=== PATIENT | female | born 1935 | race Caucasian/White ===

== ENCOUNTER 2019-06-20 11:36 | Inpatient (IN) | payer MEDICARE ==
--- NOTE | 2019-06-20 12:48 | CT ---
EXAM: CT brain without contrast HISTORY: Syncope on blood thinners COMPARISON: None TECHNIQUE: Multiple contiguous axial images were obtained and a CT of the brain without contrast. FINDINGS: There are scattered hypodensities in the subcortical and periventricular white matter consi stent with small vessel ischemic disease. There is no evidence of hydrocephalus, intracranial hemorrhage, or extra-axial fluid collection. The calvarium and overlying soft tissues are unremarkable. The visualized paranasal sinuses and masto id air cells are well aerated. IMPRESSION: No evidence of acute intracranial abnormality
[2019-06-20 12:53] LABS: #Eosinphils 0.9 thou/uL (0.0-0.7); #Lymphocytes 2.1 thou/uL (1.20-3.40); #Monocytes 0.9 thou/uL (0.11-0.59); #Neutrophils 6.1 thou/uL (1.40-6.50); %Basophils 0.5 % (0.0-1.0); %Eosinophils 8.9 % (0.0-10.0); %Lymphocytes 20.8 % (21.0-51.0); %Monocytes 9.1 % (0.0-10.0); %Neutrophils 60.8 % (42.0-75.0); Hemoglobin 12.4 g/dL (12.0-16.0); Mean Corpuscular HGB CONC 33.4 g/dL (32.0-36.0); Mean Corpuscular Hemoglobin 32.4 pg (27.0-31.0); Mean Platelet Volume 8.3 fL (7.4-10.4); Platelet Count 223 thou/uL (130-400); RBC Distribution Width 13.3 % (11.5-14.5); Red Blood Cell (RBC) Count 3.83 mill/uL (4.20-5.40); White Blood Cell (WBC) Count 10.1 thou/uL (4.8-10.8)
[2019-06-20 13:02] LABS: INR-International Normal Ratio 1.1; PTT 30.1 SEC (22.9-36.1); Prothrombin Time 14.2 SEC (12.0-14.7)
--- NOTE | 2019-06-20 13:04 | RAD ---
CHEST 1 VIEW: HISTORY: Syncope. COMPARISON: None. FINDINGS: There is a 5 mm nodule projecting over the left lung base. Heart size is mildly enlarged. Subtle right infrahilar airspace opacity. No acute osseous abnormality. There is subacromial narrowing bilaterally without normal articulation of the humeral heads with the acromion suggesting rotator cuff arthropathy. IMPRESSION: 1. Subtle right infrahilar airspace opacity may reflect infection. 2. A 5 mm nodule projecting over the left lung base, likely granuloma. Attention on posttreatment r adiographs recommended. POS: HOME
[2019-06-20 13:16] LABS: ALT (SGPT) 12 U/L (8-55); AST (SGOT) 23 U/L (5-34); Albumin 3.8 g/dL (3.4-4.8); Alkaline Phosphatase 77 U/L (40-110); Anion Gap 14 mmol/L (10-20); BUN (Urea Nitrogen) 49 mg/dL (9.8-20.1); Bilirubin, Total 0.4 mg/dL (0.2-1.2); CK (CPK) 45 U/L (29-168); Calc. Creatinine Clearance 0 mL/min (70-130); Calcium 8.4 mg/dL (7.8-10.44); Carbon Dioxide 23 mmol/L (23-31); Chloride 107 mmol/L (98-107); Estimated GFR-MDRD 28; Globulin 2.4 g/dL (2.4-3.5); Glucose 97 mg/dL (83-110); Magnesium 2.4 mg/dL (1.6-2.6); Potassium 4.5 mmol/L (3.5-5.1); Protein, Total 6.2 g/dL (6.0-8.3); Sodium 139 mmol/L (136-145)
[2019-06-20 13:31] LABS: Bilirubin Negative (Negative); Blood, Urine Negative (Negative); Clarity Clear (Clear); Glucose, Urine (Dipstick) Normal (Negative); Leukocyte Negative Leu/uL (Negative); Nitrite Negative (Negative); Protein, Urine (Dipstick) 20 mg/dL (Neg-Trace); Urobilinogen Normal mg/dL (Less than 2)
[2019-06-20 13:37] LABS: CKMB 1.4 ng/mL (0-6.6)
[2019-06-20] MEDS ORDERED: Sodium Chloride 0.9% 100 ML ONE (14:01)
[2019-06-20] MEDS ORDERED: Aspirin 325 MG TAB ONE (14:01)
[2019-06-20] MEDS ORDERED: cefTRIAXone\\ROCEPHIN 2 GM VIAL ONE (14:02)
[2019-06-20] MEDS ORDERED: Ondansetron PF 4 MG/2 ML Vial IVP PRN (14:28)
[2019-06-20] MEDS ORDERED: Sodium Chloride 0.9% 1,000 ML IV SCH (14:30)
--- NOTE | 2019-06-20 14:33 | PDOC.HHP ---
Hospitalist HPI - History of Present Illness Fainting spell History of Present Illness: Ms. Redd is an 83 y/o lady with PMH of CHF, HTN, Afib who presents to the ED after experiencing a fainting spell in yaz[place]. She states the last thing she remembers was that she wasx sitting in yaz[place] and felt her head tilt forwards and then she awoke and found several people around her trying to wake her. Family states she did not fall out of chair but rather slouched her head forward and was dificult to arouse. She apparently woke up and said she felt fine. She denies any bowel or urinary incontinence. She denies feeling lightheaded or sweaty before hand. She has never had similar episodes before. She does not remember the event or know how many minutes she was like this. Denies any cp, sob, fever, chills, nausea, vomiting, or other associated sxs. States that the past week she has been normal and has not changed her hydration or diet in any way. Of note, she has history of CHF managed by her ship officer Dr. David Ruano and is on HCTZ therapy. There have been no change in medications since her last appointment. Hospitalist ROS - Review of Systems Constitutional: denies: fever, chills, sweats, weakness, malaise, other Eyes: denies: pain, vision change, conjunctivae inflammation, eyelid inflammation, redness, other ENT: denies: ear pain, ear discharge, nose pain, nose discharge, nose congestion , mouth pain, mouth swelling, throat pain, throat swelling, other Respiratory: denies: cough, dry, shortness of breath, hemoptysis, SOB with excertion, pleuritic pain, sputum, wheezing, other Cardiovascular: denies: chest pain, palpitations, orthopnea, paroxysmal noc. dyspnea, edema, light headedness, other Gastrointestinal: denies: nausea, vomiting, abdominal pain, diarrhea, constipation, melena, hematochezia, other Genitourinary: denies: dysuria, frequency, incontinence, hematuria, retention, other Musculoskeletal: reports: back pain. denies: neck pain, shoulder pain, arm pain , hand pain, leg pain, foot pain, other Skin: denies: rash, lesions, jose, bruising, other Neurological: denies: weakness, numbness, incoordination, change in speech, confusion, seizures, other - Medication Medications: Eliquis FriJun 20, 2019 12:56 HELEN Schmitz Julia tablet : Strength - 5 mg : ORAL Patient Dose: 5 mg Oral 2 times a day. furosemide oral FriJun 20, 2019 12:57 HELEN Schmitz Julia tablet : Strength - 40 mg : ORAL Patient Dose: 40 mg Oral once a day. hydrALAZINE oral FriJun 20, 2019 12:57 HELEN Schmitz Julia tablet : Strength - 25 mg : ORAL Patient Dose: 25 mg Oral 3 times a day. losartan FriJun 20, 2019 12:57 HELEN Schmitz Julia tablet : Strength - 100 mg : ORAL Patient Dose: 100 mg Oral once a day. rosuvastatin FriJun 20, 2019 12:58 HELEN Schmitz Julia tablet : Strength - 10 mg : ORAL Patient Dose: 10 mg Oral once a day. NIFEdipine FriJun 20, 2019 12:58 HELEN Schmitz Julia tablet extended release : Strength - 60 mg : ORAL Patient Dose: 60 mg Oral 2 times a day. metoprolol succinate FriJun 20, 2019 12:59 HELEN Schmitz Julia tablet extended release 24 hr : Strength - 50 mg : ORAL Patient Dose: 1.5 tab(s) Oral 2 times a day. potassium FriJun 20, 2019 12:59 HELEN Schmitz Julia tablet : Strength - 75 mg : ORAL Patient Dose: 10 mg Oral.every other day. Aceta-Codeine FriJun 20, 2019 13:00 HELEN Schmitz Julia tablet : Strength - 300 mg-30 mg : ORAL Patient Dose: 1 tab(s) Oral once a day (at bedtime). Hospitalist History - Past Medical History Cardiac: reports: AFIB, CHF, HTN Pulmonary: reports: no pertinent history SOCIAL SERVICE DIRECTOR: reports: no pertinent history Gastrointestinal: reports: no pertinent history Heme/Onc: reports: no pertinent history Hepatobiliary: reports: no pertinent history Psych: reports: no pertinent history Musculoskeletal: reports: Chronic low back pain Rheumatologic: reports: no pertinent history Infectious Disease: reports: no pertinent history Renal/: reports: no pertinent history Endocrine: reports: no pertinent history Dermatology: reports: no pertinent history - Past Surgical History Past Surgical History: reports: Total Knee Replacement - Family History Family History: reports: hypertension - Social History Smoking Status: Never smoker Alcohol: reports: None Drugs: reports: none Living Situation: With Family Activity level: independent ambulation - Exam General Appearance: NAD, awake alert Eye: PERRL, anicteric sclera ENT: normocephalic atraumatic, no oropharyngeal lesions, moist mucosa Neck: supple, symmetric, no JVD, no thyromegaly, no lymphadenopathy, no carotid bruit Heart: RRR, no murmur, no gallops, no rubs, normal peripheral pulses Respiratory: CTAB, no wheezes, no rales, no ronchi, normal chest expansion, no tachypnea, normal percussion Gastrointestinal: soft, non-tender, non-distended, normal bowel sounds, no palpable masses, no hepatomegaly, no splenomegaly, no bruit Extremities: no cyanosis, no clubbing, 1+ LE edema Skin: normal turgor, no lesions, no rashes Neurological: cranial nerve grossly intact, normal sensation to touch, no weakness, no focal deficits, no new deficit Musculoskeletal: normal tone, normal strength, no muscle wasting Psychiatric: normal affect, normal behavior, A&O x 3 Hospitalist Results - Labs Result Diagrams: 06/20/19 12:36 06/20/19 12:36 Lab results: WBC 10.1 thou/uL (4.8-10.8) 06/20/19 12:36 Hgb 12.4 g/dL (12.0-16.0) 06/20/19 12:36 Hct 37.2 % (36.0-47.0) 06/20/19 12:36 MCV 97.0 fL (78.0-98.0) 06/20/19 12:36 Plt Count 223 thou/uL (130-400) 06/20/19 12:36 Neutrophils % 60.8 % (42.0-75.0) 06/20/19 12:36 Sodium 139 mmol/L (136-145) 06/20/19 12:36 Potassium 4.5 mmol/L (3.5-5.1) 06/20/19 12:36 Chloride 107 mmol/L (98-107) 06/20/19 12:36 Carbon Dioxide 23 mmol/L (23-31) 06/20/19 12:36 BUN 49 mg/dL (9.8-20.1) H 06/20/19 12:36 Creatinine 1.72 mg/dL (0.6-1.1) H 06/20/19 12:36 Glucose 97 mg/dL (83-110) 06/20/19 12:36 Calcium 8.4 mg/dL (7.8-10.44) 06/20/19 12:36 Total Bilirubin 0.4 mg/dL (0.2-1.2) 06/20/19 12:36 AST 23 U/L (5-34) 06/20/19 12:36 ALT 12 U/L (8-55) 06/20/19 12:36 Alkaline Phosphatase 77 U/L (40-110) 06/20/19 12:36 Creatine Kinase 45 U/L (29-168) 06/20/19 12:36 CK-MB (CK-2) 1.4 ng/mL (0-6.6) 06/20/19 12:36 Troponin I 0.078 ng/mL (< 0.028) H 06/20/19 12:36 B-Natriuretic Peptide 127.8 pg/mL (0-100) H 06/20/19 12:36 Serum Total Protein 6.2 g/dL (6.0-8.3) 06/20/19 12:36 Albumin 3.8 g/dL (3.4-4.8) 06/20/19 12:36 Urine Ketones Negative mg/dL (Negative) 06/20/19 13:20 Urine Blood Negative (Negative) 06/20/19 13:20 Urine Nitrite Negative (Negative) 06/20/19 13:20 Ur Leukocyte Esterase Negative Gertrudis/uL (Negative) 06/20/19 13:20 Additional comment: VITAL SIGNS Sun Jun 20, 2019 14:13 HELEN Schmitz Julia BP: 152/54, Pulse: 54, Resp: 18, Pain: 0, O2 sat: 94 on (Room Air), Time: 2018 14:13. Orthostatic vital signs indicated for Syncope, Lying:, Blood pressure: 148/57, Pulse: 52, No dizziness, Sitting:, Blood pressure: 135/75, Pulse: 54, No dizziness with position change, Standing:, Blood pressure: 144/56, Pulse: 53, No dizziness with position change. - EKG Interpretation EK lead EKG shows, sinus bradycardia, Rate (beats per minute): 49, with 1st degree AV block, Conduction with, incomplete right bundle branch block, T waves , Consider inferior ischemia, Septal infarct, age undetermined. Hospitalist H&P A/P - Problem (1) Syncope Code(s): R55 - SYNCOPE AND COLLAPSE Status: Acute (2) Acute kidney failure Status: Acute (3) Chronic CHF Code(s): I50.9 - HEART FAILURE, UNSPECIFIED Status: Acute (4) Chronic atrial fibrillation Code(s): I48.20 - CHRONIC ATRIAL FIBRILLATION, UNSPECIFIED Status: Acute (5) Chronic anticoagulation Code(s): Z79.01 - RESIDENTIAL (CURRENT) USE OF ANTICOAGULANTS Status: Acute (6) Hypertension Code(s): I10 - ESSENTIAL (PRIMARY) HYPERTENSION Status: Acute - Plan Plan: Admit for obs tele. Orthostatics reviewed, negative study. She has sinud bradycardia, hx of afib, noted on EKG, continue telemetry monitoring Order Echocardiogram with her ship officer Dr. David Ruano to read ROSALINDA suggestive of pre-renal possibly dehydrated, fluid challenge with NS @ 50ml/ hr x 1 bag given CHF history CHF not in exacerbation, will hold diuretics for now, resume tomorrow Continue other home medications once reconciled DVT prophylaxis: On Elliquis for afib Code status: Full ACP: Daughter is POA. Patient would like treatment and full code status except is she was diagnosed with a terminal illness. No advance directive on file. Disposition: Admit for obs. Workup of syncope. Monitor Cr and follow up echo results.
[2019-06-20] MEDS ORDERED: Azithromycin 500 MG VIAL ONE (15:07)
[2019-06-20 16:41] LABS: Troponin I 0.058 ng/mL (< 0.028)
[2019-06-20 16:56] VITALS: BMI 32.2
[2019-06-20 19:40] LABS: Troponin I 0.029 ng/mL (< 0.028)
[2019-06-20] MEDS ORDERED: hydrALAZINE 25 MG TAB PO SCH (22:45)
[2019-06-20] MEDS ORDERED: Apixaban 5 MG TAB PO SCH (22:45)
[2019-06-20] MEDS ORDERED: Rosuvastatin 10 MG TAB PO SCH (22:45)
[2019-06-20] MEDS: Acetaminophen 325 MG TAB PO PRN (22:47)
[2019-06-21 05:33] LABS: #Eosinphils 0.7 thou/uL (0.0-0.7); #Lymphocytes 2.5 thou/uL (1.20-3.40); #Monocytes 0.6 thou/uL (0.11-0.59); #Neutrophils 3.4 thou/uL (1.40-6.50); %Basophils 0.6 % (0.0-1.0); %Eosinophils 9.9 % (0.0-10.0); %Lymphocytes 34.2 % (21.0-51.0); %Monocytes 8.8 % (0.0-10.0); %Neutrophils 46.6 % (42.0-75.0); Mean Corpuscular Hemoglobin 32.3 pg (27.0-31.0); Mean Platelet Volume 8.6 fL (7.4-10.4); Platelet Count 184 thou/uL (130-400); RBC Distribution Width 13.1 % (11.5-14.5); White Blood Cell (WBC) Count 7.2 thou/uL (4.8-10.8)
[2019-06-21 06:04] LABS: Anion Gap 10 mmol/L (10-20); BUN (Urea Nitrogen) 34 mg/dL (9.8-20.1); Calc. Creatinine Clearance 52 mL/min (70-130); Calcium 7.8 mg/dL (7.8-10.44); Carbon Dioxide 23 mmol/L (23-31); Chloride 110 mmol/L (98-107); Estimated GFR-MDRD 49; Glucose 82 mg/dL (83-110); Potassium 4.4 mmol/L (3.5-5.1); Sodium 139 mmol/L (136-145)
[2019-06-21] MEDS: Apixaban 5 MG TAB PO SCH ×2 (09:43→20:39)
[2019-06-21] MEDS: hydrALAZINE 25 MG TAB PO SCH ×3 (09:43→20:39)
[2019-06-21] MEDS ORDERED: Metoprolol Tartrate 25 MG TAB PO SCH ×2 (11:15→21:00)
[2019-06-21] MEDS ORDERED: NIFEdipine XL 60 MG TAB PO SCH ×2 (11:15→21:00)
--- NOTE | 2019-06-21 11:48 | PDOC.HOSPP ---
- Subjective Encounter Date: 06/21/19 Subjective: States she feels fine this morning. She was hypertensive this AM on vitals. On telemetry strip she has PACs. Denies cp, sob, or other symptoms. - Objective Vital Signs & Weight: Vital Signs (12 hours) Temp Pulse Pulse Pulse Resp BP BP 06/21/19 11:27 66 176/77 H 06/21/19 10:31 84 80 189/84 H 06/21/19 09:43 66 176/77 H 06/21/19 07:35 98.0 F 66 18 06/21/19 03:20 97.7 F 69 16 163/70 H BP BP BP BP Pulse Ox 06/21/19 11:27 06/21/19 10:31 228/92 H 06/21/19 09:43 06/21/19 07:35 225/87 H 198/86 H 176/77 H 97 06/21/19 03:20 94 L Weight Weight 188 lb I&O: 06/20/19 06/21/19 06/22/19 06:59 06:59 06:59 Intake Total 1040 Balance 1040 Result Diagrams: 06/21/19 04:52 06/21/19 04:52 Hospitalist ROS - Review of Systems ENT: denies: ear pain, ear discharge, nose pain, nose discharge, nose congestion , mouth pain, mouth swelling, throat pain, throat swelling, other Respiratory: denies: cough, dry, shortness of breath, hemoptysis, SOB with excertion, pleuritic pain, sputum, wheezing, other Gastrointestinal: denies: nausea, vomiting, abdominal pain, diarrhea, constipation, melena, hematochezia, other Neurological: denies: weakness, numbness, incoordination, change in speech, confusion, seizures, other - Medication Medications: Active Medications Generic Name Dose Route Start Last Admin Trade Name Freq PRN Reason Stop Dose Admin Acetaminophen 650 mg 06/20/19 14:28 06/20/19 22:47 Tylenol PO 650 mg Q4H PRN Administration Headache/Fever/Mild Pain (1-3) Apixaban 5 mg 06/21/19 09:00 06/21/19 09:43 Eliquis PO 5 mg BID RANDALL Administration Hydralazine HCl 25 mg 06/21/19 09:00 06/21/19 09:43 Apresoline PO 25 mg TID RANDALL Administration Metoprolol Tartrate 75 mg 06/21/19 11:15 06/21/19 11:28 Lopressor PO 06/21/19 13:15 75 mg NOW RANDALL Administration Nifedipine 60 mg 06/21/19 11:15 06/21/19 11:27 Procardia Xl PO 06/21/19 13:15 60 mg NOW RANDALL Administration - Exam General Appearance: NAD, awake alert Eye: PERRL, anicteric sclera ENT: normocephalic atraumatic, no oropharyngeal lesions, moist mucosa Neck: supple, symmetric, no JVD, no thyromegaly, no lymphadenopathy, no carotid bruit Heart: RRR, no murmur, no gallops, no rubs, normal peripheral pulses Respiratory: CTAB, no wheezes, no rales, no ronchi, normal chest expansion, no tachypnea, normal percussion Gastrointestinal: soft, non-tender, non-distended, normal bowel sounds, no palpable masses, no hepatomegaly, no splenomegaly, no bruit Extremities: no cyanosis, no clubbing, no edema Skin: normal turgor, no lesions, no rashes Neurological: cranial nerve grossly intact, normal sensation to touch, no weakness, no focal deficits, no new deficit Musculoskeletal: normal tone, normal strength, no muscle wasting Psychiatric: normal affect, normal behavior, A&O x 3 Hosp A/P (1) Syncope Code(s): R55 - SYNCOPE AND COLLAPSE Status: Acute Plan: Pending echocardiogram, telemetry strip shows PACs, consult cardio for opinion, likely dehydration in nature but will insure no mulficatorial causes. Resume home metoprolol, nifedipine, and hydralazine. (2) Acute kidney failure Status: Acute Plan: Resolved from fluid challenge. Encourage PO intake at this time. (3) Chronic CHF Code(s): I50.9 - HEART FAILURE, UNSPECIFIED Status: Acute Plan: Continue home medications. (4) Chronic atrial fibrillation Code(s): I48.20 - CHRONIC ATRIAL FIBRILLATION, UNSPECIFIED Status: Acute Plan: PACs shown on telemetry stip. Resume home Elliquis (5) Chronic anticoagulation Code(s): Z79.01 - BUSINESS MANAGER (CURRENT) USE OF ANTICOAGULANTS Status: Acute (6) Hypertension Code(s): I10 - ESSENTIAL (PRIMARY) HYPERTENSION Status: Acute Plan: Discussed with her outpatient reservation manager, Metoprolol 50mg BID, reduce Nifedipine to 60mg daily and continue to monitor. - Plan Disposition: Pending echo. Cardiology reccs appreciated. Likely d/c tomorrow if everything stable.
[2019-06-21] MEDS ORDERED: Losartan 25 MG TAB PO SCH (15:45)
--- NOTE | 2019-06-21 17:10 | EKG ---
Test Reason : Blood Pressure : / mmHG Vent. Rate : 059 BPM Atrial Rate : 059 BPM P-R Int : 270 ms QRS Dur : 132 ms QT Int : 460 ms P-R-T Axes : 080 017 005 degrees QTc Int : 455 ms Sinus bradycardia with 1st degree A-V block Right bundle branch block Nonspecific ST-T changes inferiorly Abnormal ECG When compared with ECG of 20-JUN-2019 11:52, (Unconfirmed) Right bundle branch block has replaced Incomplete right bundle branch block Criteria for Septal infarct are no longer Present Confirmed by DR. Zackary BROWN ([id number]) on 06/21/2019 5:10:11 PM Referred By: BETH Confirmed By:DR. Zackary BROWN
--- NOTE | 2019-06-21 19:59 | PRG ---
DATE OF SERVICE: 06/21/2019 SUBJECTIVE: Ms. Redd is a delightful 83-year-old patient of Dr. Paez. The patient was in catholic. She was in the sitting position. She said her prayer. She had been sitting there quite a while and she had suddenly lost consciousness. They brought here to the emergency room. She was found to be hypertensive, but her blood pressure is controlled now. MEDICATION LIST: Please see nurse's notes. PHYSICAL EXAMINATION: GENERAL: Now, she is alert and awake and feels fine. VITAL SIGNS: Her blood pressure is controlled now, it is still high at 174/78, pulse 77. LUNGS: Clear. CARDIAC: Normal S1, normal S2. ABDOMEN: Soft and nontender. EXTREMITIES: No edema. DIAGNOSTIC STUDIES: EKG, sinus rhythm with a right bundle-branch block, also a first-degree AV block, OK is 0.27. Also on exam, she does have a systolic murmur at the apex. Dr. Paez has done an evaluation in the office including echocardiogram done in 2018, showing left ventricular dysfunction, ejection fraction 55% to 60%, mild concentric left ventricular hypertrophy, mild tricuspid insufficiency. Also had a stress test done in the past. ASSESSMENT: 1. Syncopal episode, suspicious for a dysrhythmia, possible bradyarrhythmia or heart block. 2. She has been here since yesterday with no arrhythmias. PLAN: Continue current medical regimen. The patient can be released home tomorrow, we will arrange for an outpatient looping event monitor. Job ID: [id number]
[2019-06-21] MEDS: Metoprolol Tartrate 50 MG TAB PO SCH (20:39)
[2019-06-21] MEDS: Rosuvastatin 10 MG TAB PO SCH (20:39)
[2019-06-22 00:02] LABS: Hemoglobin 10.9 g/dL (12.0-16.0); Platelet Count 188 thou/uL (130-400)
[2019-06-22] MEDS ORDERED: hydrALAZINE 20 MG/ML VIAL SLOW IVP PRN (00:26)
[2019-06-22] MEDS: Apixaban 5 MG TAB PO SCH (08:31)
[2019-06-22] MEDS: hydrALAZINE 25 MG TAB PO SCH ×3 (08:32→21:09)
[2019-06-22] MEDS: Metoprolol Tartrate 50 MG TAB PO SCH (08:32)
[2019-06-22] MEDS: Losartan 25 MG TAB PO SCH (08:32)
[2019-06-22] MEDS: NIFEdipine XL 60 MG TAB PO SCH (08:33)
--- NOTE | 2019-06-22 08:52 | PDOC.CPN ---
- Subjective Date: 06/22/19 Time: 08:30 Interval history: Mrs. Redd is feeling well today, anxious to go home. Denies any dizziness, lightheadedness. Denies CP, SOB. Has been ambulating to the bathroom without difficulty. No overnight events on telemetry. - Objective Allergies/Adverse Reactions: Allergies Allergy/AdvReac Type Severity Reaction Status Date / Time rivaroxaban [From Xarelto] Allergy Verified 06/20/19 16:44 Visit Medications: Current Medications Acetaminophen (Tylenol) 650 mg PO Q4H PRN PRN Reason: Headache/Fever/Mild Pain (1-3) Last Admin: 06/20/19 22:47 Dose: 650 mg Apixaban (Eliquis) 5 mg PO BID [facility] Last Admin: 06/22/19 08:31 Dose: 5 mg Hydralazine HCl (Apresoline) 25 mg PO TID [facility] Last Admin: 06/22/19 08:32 Dose: 25 mg Hydralazine HCl (Apresoline) 10 mg SLOW IVP Q4H PRN PRN Reason: SBP Greater Than 180 Last Admin: 06/22/19 04:34 Dose: 10 mg Losartan Potassium (Cozaar) 100 mg PO DAILY [facility] Last Admin: 06/22/19 08:32 Dose: 100 mg Metoprolol Tartrate (Lopressor) 50 mg PO BID [facility] Last Admin: 06/22/19 08:32 Dose: 50 mg Nifedipine (Procardia Xl) 60 mg PO DAILY [facility] Last Admin: 06/22/19 08:33 Dose: 60 mg Ondansetron HCl (Zofran) 4 mg IVP Q6H PRN PRN Reason: Nausea/Vomiting Rosuvastatin Calcium (Crestor) 10 mg PO HS [facility] Last Admin: 06/21/19 20:39 Dose: 10 mg Sodium Chloride (Flush - Normal Saline) 10 ml IVF PRN PRN PRN Reason: Saline Flush Vital Signs & Weight: Vital Signs Temp Pulse Resp BP BP BP BP 06/22/19 08:33 70 06/22/19 08:32 70 06/22/19 07:18 98.2 F 70 20 168/60 H 06/22/19 05:46 65 164/71 H 06/22/19 04:34 97.8 F 66 15 196/76 H 196/76 H 06/22/19 00:10 97.9 F 66 20 164/66 H Pulse Ox 06/22/19 08:33 06/22/19 08:32 06/22/19 07:18 94 L 06/22/19 05:46 06/22/19 04:34 93 L 06/22/19 00:10 93 L Weight 188 lb - [facility]-V[facility] Congestive heart failure: 1 Hypertension: 1 Age >75: 2 Female: 1 Risk Score: 5 - Quality Measures Condition: Atrial Fibrillation/Flutter (hx or current), Heart Failure CV meds: Beta Renato: Yes, SVEN/ARB: Yes, Statin: Yes, Anticoagulant: Yes - Physical Exam General: alert & oriented x3, appears well, no apparent distress Cardiac: regular rate and rhythm, S1/S2, systolic murmur (2/6 COBY at LSB) Lungs: clear to auscultation, normal breath sounds, no wheeze, rales, rhonchi Neuro: grossly intact Abdomen: active bowel sounds, soft, non-tender Extremities: 1+ LE edema - Labs Result Diagrams: 06/21/19 23:56 06/21/19 23:56 Troponin/CKMB CK-MB (CK-2) 1.4 ng/mL (0-6.6) 06/20/19 12:36 Troponin I 0.029 ng/mL (< 0.028) H 06/20/19 19:02 - EKG Interpretation Status: report reviewed by me EKG Method: Telemetry - Telemetry Sinus rhythms and dysrhythmias: sinus rhythm (1st degree AVB, right BBB on 12- lead) - Problem (1) Syncope Code(s): R55 - SYNCOPE AND COLLAPSE Assessment and Plan: Unknown etiology, suspicious for dysrhythmia. No arrhythmias on telemetry, no significant bradycardia. Will place 21-day EVM for definitive diagnosis. Patient has been instructed to not operative a motor vehicle until monitoring complete. (2) Hypertension Code(s): I10 - ESSENTIAL (PRIMARY) HYPERTENSION Qualifiers: Hypertension type: essential hypertension Qualified Code(s): I10 - Essential (primary) hypertension Assessment and Plan: Labile, states home systolics run 130s-150s. Continue home medications, follow- up with Dr. Paez for titration. (3) Chronic CHF Code(s): I50.9 - HEART FAILURE, UNSPECIFIED Assessment and Plan: Euvolemic. No exertional symptoms. Echocardiogram shows preserved EF, 55-60%, mild MR, normal LA size, normal AV. Mildly elevated PA pressures. (4) Acute kidney failure Assessment and Plan: Resolved. (5) Paroxysmal atrial fibrillation Code(s): I48.0 - PAROXYSMAL ATRIAL FIBRILLATION Assessment and Plan: No documented recurrence. On Eliquis, medical therapy. Continue same. - Assessment/Plan Assessment/Plan: Okay to d/c home with 21-day EVM. Continue home medications. has f/u with Dr. Paez scheduled 07/09/19 @ 1130.
--- NOTE | 2019-06-22 11:31 | PDOC.EVN ---
Event Note - Event Note Event Note: Notified by nurse, patient had several pauses, 2.4 seconds, 3.3 seconds. Patient seen and examined. BP stable. No dizziness or lightheadedness. Discussed with Dr. Shaffer, noted with 1st degree AVB, now with sinus pause >3 seconds, documented syncopal episode, will need PPM. Stop BB, hold Eliquis for now. Will increase hydralazine for BP. Spoke with patient & patient granddaughter, discussed mechanism of sinus pause, likely etiology of syncope. Reviewed risk of procedure, including infection, bleeding, bruising/swelling at insertion site, collapse of lung, VT, stroke, or . They are willing to proceed. Dr. Shaffer to perform PPM insertion.
--- NOTE | 2019-06-22 12:06 | PDOC.HOSPP ---
- Subjective Subjective: On telemetry strip she had a pauses noted. She did not feel sxs during this time. Otherwise no other complaints - Objective Vital Signs & Weight: Vital Signs (12 hours) Temp Pulse Resp BP BP BP BP 06/22/19 08:33 70 06/22/19 08:32 70 06/22/19 07:18 98.2 F 70 20 168/60 H 06/22/19 05:46 65 164/71 H 06/22/19 04:34 97.8 F 66 15 196/76 H 196/76 H 06/22/19 00:10 97.9 F 66 20 164/66 H Pulse Ox 06/22/19 08:33 06/22/19 08:32 06/22/19 07:18 94 L 06/22/19 05:46 06/22/19 04:34 93 L 06/22/19 00:10 93 L Weight Weight 188 lb I&O: 06/21/19 06/22/19 06/23/19 06:59 06:59 06:59 Intake Total 1040 2000 Output Total 450 Balance 1040 1550 Result Diagrams: 06/21/19 23:56 06/21/19 23:56 Hospitalist ROS - Review of Systems Constitutional: denies: fever, chills, sweats, weakness, malaise, other Respiratory: denies: cough, dry, shortness of breath, hemoptysis, SOB with excertion, pleuritic pain, sputum, wheezing, other Cardiovascular: denies: chest pain, palpitations, orthopnea, paroxysmal noc. dyspnea, edema, light headedness, other Gastrointestinal: denies: nausea, vomiting, abdominal pain, diarrhea, constipation, melena, hematochezia, other - Medication Medications: Active Medications Generic Name Dose Route Start Last Admin Trade Name Freq PRN Reason Stop Dose Admin Acetaminophen 650 mg 06/20/19 14:28 06/20/19 22:47 Tylenol PO 650 mg Q4H PRN Administration Headache/Fever/Mild Pain (1-3) Apixaban 5 mg 06/21/19 09:00 06/22/19 08:31 Eliquis PO 5 mg BID RANDALL Administration Hydralazine HCl 10 mg 06/22/19 00:26 06/22/19 04:34 Apresoline SLOW IVP 10 mg Q4H PRN Administration SBP Greater Than 180 Losartan Potassium 100 mg 06/22/19 09:00 06/22/19 08:32 Cozaar PO 100 mg DAILY RANDALL Administration Nifedipine 60 mg 06/22/19 09:00 06/22/19 08:33 Procardia Xl PO 60 mg DAILY RANDALL Administration Rosuvastatin Calcium 10 mg 06/21/19 21:00 06/21/19 20:39 Crestor PO 10 mg HS RANDALL Administration - Exam General Appearance: NAD, awake alert Eye: PERRL, anicteric sclera ENT: normocephalic atraumatic, no oropharyngeal lesions, moist mucosa Neck: supple, symmetric, no JVD, no thyromegaly, no lymphadenopathy, no carotid bruit Heart: RRR, no murmur, no gallops, no rubs, normal peripheral pulses Respiratory: CTAB, no wheezes, no rales, no ronchi, normal chest expansion, no tachypnea, normal percussion Gastrointestinal: soft, non-tender, non-distended, normal bowel sounds, no palpable masses, no hepatomegaly, no splenomegaly, no bruit Extremities: no cyanosis, no clubbing, no edema Skin: normal turgor, no lesions, no rashes Neurological: cranial nerve grossly intact, normal sensation to touch, no weakness, no focal deficits, no new deficit Musculoskeletal: normal tone, normal strength, no muscle wasting Psychiatric: normal affect, normal behavior, A&O x 3 Hosp A/P (1) Syncope Code(s): R55 - SYNCOPE AND COLLAPSE Status: Acute (2) Sinus pause Code(s): I45.5 - OTHER SPECIFIED HEART BLOCK Status: Acute (3) Acute kidney failure Status: Resolved Plan: Improved (4) Chronic CHF Code(s): I50.9 - HEART FAILURE, UNSPECIFIED Status: Acute (5) Chronic atrial fibrillation Code(s): I48.20 - CHRONIC ATRIAL FIBRILLATION, UNSPECIFIED Status: Acute (6) Chronic anticoagulation Code(s): Z79.01 - LONG-TERM (CURRENT) USE OF ANTICOAGULANTS Status: Acute (7) Hypertension Code(s): I10 - ESSENTIAL (PRIMARY) HYPERTENSION Status: Acute Qualifiers: Hypertension type: essential hypertension Qualified Code(s): I10 - Essential (primary) hypertension - Plan Pauses noted on telemetry strip Discussed case with cardiology, given her PACs, pauses, and sinus bradycardia/ pauses at times they will place a pacemaker likely on of this week Continue other supportive care at this time Continue home medications for HTN ROSALINDA improved Dispo: Pending pacemaker placement.
[2019-06-22] MEDS: Rosuvastatin 10 MG TAB PO SCH (21:08)
[2019-06-23] MEDS: NIFEdipine XL 60 MG TAB PO SCH ×2 (09:44→19:58)
[2019-06-23] MEDS: hydrALAZINE 25 MG TAB PO SCH ×3 (09:44→19:59)
[2019-06-23] MEDS: Losartan 25 MG TAB PO SCH (09:44)
--- NOTE | 2019-06-23 11:36 | PDOC.CPN ---
- Subjective Date: 06/23/19 Time: 11:42 Interval history: The pt seen and examined. No overnight events. No cardiac complaints. - Objective Allergies/Adverse Reactions: Allergies Allergy/AdvReac Type Severity Reaction Status Date / Time rivaroxaban [From Xarelto] Allergy Verified 06/20/19 16:44 Visit Medications: Current Medications Acetaminophen (Tylenol) 650 mg PO Q4H PRN PRN Reason: Headache/Fever/Mild Pain (1-3) Last Admin: 06/20/19 22:47 Dose: 650 mg Apixaban (Eliquis) 5 mg PO BID [facility] Last Admin: 06/22/19 08:31 Dose: 5 mg Hydralazine HCl (Apresoline) 10 mg SLOW IVP Q4H PRN PRN Reason: SBP Greater Than 180 Last Admin: 06/22/19 04:34 Dose: 10 mg Hydralazine HCl (Apresoline) 75 mg PO TID [facility] Last Admin: 06/23/19 09:44 Dose: 75 mg Losartan Potassium (Cozaar) 100 mg PO DAILY [facility] Last Admin: 06/23/19 09:44 Dose: 100 mg Nifedipine (Procardia Xl) 60 mg PO BID [facility] Ondansetron HCl (Zofran) 4 mg IVP Q6H PRN PRN Reason: Nausea/Vomiting Rosuvastatin Calcium (Crestor) 10 mg PO HS [facility] Last Admin: 06/22/19 21:08 Dose: 10 mg Sodium Chloride (Flush - Normal Saline) 10 ml IVF PRN PRN PRN Reason: Saline Flush Terazosin HCl (Hytrin) 1 mg PO [facility] Vital Signs & Weight: Vital Signs Temp Pulse Resp BP BP BP BP 06/23/19 09:44 72 152/100 H 06/23/19 07:33 98.1 F 72 18 196/97 H 242/124 H 06/23/19 05:53 97.7 F 77 20 180/74 H BP Pulse Ox 06/23/19 09:44 06/23/19 07:33 152/100 H 93 L 06/23/19 05:53 95 Weight 188 lb - Quality Measures Condition: Atrial Fibrillation/Flutter (hx or current), Heart Failure CV meds: Beta Renato: Yes, SVEN/ARB: Yes, Statin: Yes, Anticoagulant: Yes - Physical Exam General: alert & oriented x3 HEENT: mucus membranes moist Neck: supple neck Cardiac: irregularly regular Lungs: clear to auscultation Neuro: cranial nerve 2-12 intact Extremities: no edema - Labs Result Diagrams: 06/21/19 23:56 06/21/19 23:56 Troponin/CKMB CK-MB (CK-2) 1.4 ng/mL (0-6.6) 06/20/19 12:36 Troponin I 0.029 ng/mL (< 0.028) H 06/20/19 19:02 - Telemetry Supraventricular conduction: atrial fibrillation - Assessment/Plan Assessment/Plan: 1. Bradycardia - Plan for PM placement tomorrow 2. S/p Syncopal episode - PM placement tomorrow; holding Eliquis and bblocker 3. Prox Afib - well controlled HR; 4. HTN - will increase Nifidipine to 60mg BID (home dose) 5. ROSALINDA MAR reviewed * Dr. Paez's pt. * Most likely, the pt may d/c after PM placement and stable VS; F/u with Dr Paez on 07/09/19 @ 1130. Pt. seen and eval. by me. I agree with the A/P by the DEVELOPMENT EXECUTIVE. She had more episodes this afternoon of bradycardia and pauses. She is off the betablockers. Plan for pacemaker insertion tomorrow and then resume betablockers. abner
--- NOTE | 2019-06-23 16:36 | PDOC.HOSPP ---
- Subjective Subjective: No complaints overnight. No syncopal events. Denies cp, sob, or other sxs. - Objective Vital Signs & Weight: Vital Signs (12 hours) Temp Pulse Pulse Resp BP BP BP 06/23/19 15:31 97.7 F 83 20 185/81 H 06/23/19 15:24 77 178/72 H 06/23/19 12:30 06/23/19 11:18 98.1 F 77 16 06/23/19 10:46 79 206/85 H 06/23/19 09:44 72 152/100 H 06/23/19 08:00 06/23/19 07:33 98.1 F 72 18 06/23/19 05:53 97.7 F 77 20 180/74 H BP BP BP Pulse Ox 06/23/19 15:31 96 06/23/19 15:24 06/23/19 12:30 178/72 H 06/23/19 11:18 188/80 H 95 06/23/19 10:46 06/23/19 09:44 06/23/19 08:00 93 L 06/23/19 07:33 196/97 H 242/124 H 152/100 H 93 L 06/23/19 05:53 95 Weight Weight 188 lb I&O: 06/22/19 06/23/19 06/24/19 06:59 06:59 06:59 Intake Total 2000 940 Output Total 450 Balance 1550 940 Result Diagrams: 06/21/19 23:56 06/21/19 23:56 Hospitalist ROS - Review of Systems Constitutional: denies: fever, chills, sweats, weakness, malaise, other Cardiovascular: denies: chest pain, palpitations, orthopnea, paroxysmal noc. dyspnea, edema, light headedness, other Gastrointestinal: denies: nausea, vomiting, abdominal pain, diarrhea, constipation, melena, hematochezia, other - Medication Medications: Active Medications Generic Name Dose Route Start Last Admin Trade Name Freq PRN Reason Stop Dose Admin Acetaminophen 650 mg 06/20/19 14:28 06/20/19 22:47 Tylenol PO 650 mg Q4H PRN Administration Headache/Fever/Mild Pain (1-3) Apixaban 5 mg 06/21/19 09:00 06/22/19 08:31 Eliquis PO 5 mg BID RANDALL Administration Hydralazine HCl 10 mg 06/22/19 00:26 06/22/19 04:34 Apresoline SLOW IVP 10 mg Q4H PRN Administration SBP Greater Than 180 Hydralazine HCl 75 mg 06/22/19 15:00 06/23/19 15:24 Apresoline PO 75 mg TID RANDALL Administration Losartan Potassium 100 mg 06/22/19 09:00 06/23/19 09:44 Cozaar PO 100 mg DAILY RANDALL Administration Rosuvastatin Calcium 10 mg 06/21/19 21:00 06/22/19 21:08 Crestor PO 10 mg HS RANDALL Administration - Exam General Appearance: NAD, awake alert Eye: PERRL, anicteric sclera ENT: normocephalic atraumatic, no oropharyngeal lesions, moist mucosa Neck: supple, symmetric, no JVD, no thyromegaly, no lymphadenopathy, no carotid bruit Heart: RRR, no murmur, no gallops, no rubs, normal peripheral pulses Respiratory: CTAB, no wheezes, no rales, no ronchi, normal chest expansion, no tachypnea, normal percussion Gastrointestinal: soft, non-tender, non-distended, normal bowel sounds, no palpable masses, no hepatomegaly, no splenomegaly, no bruit Extremities: no cyanosis, no clubbing, no edema Skin: normal turgor, no lesions, no rashes Neurological: cranial nerve grossly intact, normal sensation to touch, no weakness, no focal deficits, no new deficit Musculoskeletal: normal tone, normal strength, no muscle wasting Psychiatric: normal affect, normal behavior, A&O x 3 Hosp A/P (1) Syncope Code(s): R55 - SYNCOPE AND COLLAPSE Status: Acute (2) Sinus pause Code(s): I45.5 - OTHER SPECIFIED HEART BLOCK Status: Acute (3) Acute kidney failure Status: Resolved (4) Chronic CHF Code(s): I50.9 - HEART FAILURE, UNSPECIFIED Status: Acute (5) Chronic atrial fibrillation Code(s): I48.20 - CHRONIC ATRIAL FIBRILLATION, UNSPECIFIED Status: Acute (6) Chronic anticoagulation Code(s): Z79.01 - [facility] (CURRENT) USE OF ANTICOAGULANTS Status: Acute (7) Hypertension Code(s): I10 - ESSENTIAL (PRIMARY) HYPERTENSION Status: Acute Qualifiers: Hypertension type: essential hypertension Qualified Code(s): I10 - Essential (primary) hypertension - Plan Pauses noted on telemetry strip Discussed case with cardiology, given her PACs, pauses, and sinus bradycardia/ pauses at times they will place a pacemaker likely on of this week Continue other supportive care at this time Continue home medications for HTN ROSALINDA improved Dispo: Pending pacemaker placement tmr.
[2019-06-23] MEDS: Rosuvastatin 10 MG TAB PO SCH (19:59)
[2019-06-23] MEDS: Terazosin HCl 1 MG CAP PO SCH (20:03)
[2019-06-24 09:46] LABS: Hemoglobin 12.7 g/dL (12.0-16.0); Platelet Count 197 thou/uL (130-400)
[2019-06-24] MEDS: Losartan 25 MG TAB PO SCH (09:56)
[2019-06-24] MEDS: NIFEdipine XL 60 MG TAB PO SCH ×2 (09:56→21:11)
[2019-06-24] MEDS: hydrALAZINE 25 MG TAB PO SCH ×3 (09:56→21:11)
[2019-06-24] MEDS ORDERED: CEFAZOLIN 1 GM VIAL ONE ×2 (10:00→11:37)
[2019-06-24] MEDS ORDERED: Gentamicin 80 MG/2 ML VIAL ONE ×2 (10:00→11:37)
--- NOTE | 2019-06-24 12:47 | PDOC.HOSPP ---
- Subjective Encounter Date: 06/24/19 Encounter Time: 10:15 Subjective: is sitting in chair, family at bedside no sob or chest pain - Objective Vital Signs & Weight: Vital Signs (12 hours) Temp Pulse Resp BP BP BP BP 06/24/19 12:20 182/71 H 06/24/19 11:34 97.4 F L 78 16 06/24/19 09:56 78 175/78 H 06/24/19 07:47 97.7 F 78 18 168/77 H 175/78 H 06/24/19 04:00 98.0 F 86 18 162/70 H BP Pulse Ox 06/24/19 12:20 06/24/19 11:34 92 L 06/24/19 09:56 06/24/19 07:47 175/84 H 96 06/24/19 04:00 97 Weight Weight 188 lb I&O: 06/23/19 06/24/19 06/25/19 06:59 06:59 06:59 Intake Total 940 1050 Balance 940 1050 Result Diagrams: 06/24/19 09:07 06/24/19 09:07 Hospitalist ROS - Medication Medications: Active Medications Generic Name Dose Route Start Last Admin Trade Name Freq PRN Reason Stop Dose Admin Acetaminophen 650 mg 06/20/19 14:28 06/20/19 22:47 Tylenol PO 650 mg Q4H PRN Administration Headache/Fever/Mild Pain (1-3) Apixaban 5 mg 06/21/19 09:00 06/22/19 08:31 Eliquis PO 5 mg BID RANDALL Administration Hydralazine HCl 10 mg 06/22/19 00:26 06/22/19 04:34 Apresoline SLOW IVP 10 mg Q4H PRN Administration SBP Greater Than 180 Hydralazine HCl 75 mg 06/22/19 15:00 06/24/19 09:56 Apresoline PO 75 mg TID RANDALL Administration Losartan Potassium 100 mg 06/22/19 09:00 06/24/19 09:56 Cozaar PO 100 mg DAILY RANDALL Administration Nifedipine 60 mg 06/23/19 21:00 06/24/19 09:56 Procardia Xl PO 60 mg BID RANDALL Administration Rosuvastatin Calcium 10 mg 06/21/19 21:00 06/23/19 19:59 Crestor PO 10 mg HS RANDALL Administration Sodium Chloride 10 ml 06/24/19 09:00 06/24/19 09:57 Flush - Normal Saline IVF 10 ml Q12HR RANDALL Administration Terazosin HCl 1 mg 06/23/19 21:00 06/23/19 20:03 Hytrin PO 1 mg HS RANDALL Administration - Exam General Appearance: awake alert Eye: PERRL, anicteric sclera ENT: no oropharyngeal lesions, moist mucosa Neck: supple, no JVD Heart: RRR, no murmur Respiratory: no wheezes, no rales Gastrointestinal: soft, non-tender, non-distended, normal bowel sounds Extremities: no cyanosis, no edema Neurological: cranial nerve grossly intact, no focal deficits Psychiatric: normal affect, A&O x 3 Hosp A/P (1) Bradycardia Code(s): R00.1 - BRADYCARDIA, UNSPECIFIED Status: Acute (2) Syncope Code(s): R55 - SYNCOPE AND COLLAPSE Status: Acute (3) Sinus pause Code(s): I45.5 - OTHER SPECIFIED HEART BLOCK Status: Acute (4) ROSALINDA (acute kidney injury) Code(s): N17.9 - ACUTE KIDNEY FAILURE, UNSPECIFIED Status: Acute (5) Chronic anemia Code(s): D64.9 - ANEMIA, UNSPECIFIED Status: Acute (6) Hypertension Code(s): I10 - ESSENTIAL (PRIMARY) HYPERTENSION Status: Acute Qualifiers: Hypertension type: essential hypertension Qualified Code(s): I10 - Essential (primary) hypertension (7) Paroxysmal atrial fibrillation Code(s): I48.0 - PAROXYSMAL ATRIAL FIBRILLATION Status: Chronic - Plan for pcm placement today will optimize meds after pcm is placed is currently on cozaar, procardia xl, hydralazine, crestor, hytrin eliangel is held for now hemostable
[2019-06-24] MEDS ORDERED: Midazolam HCl 2 mg/2 ml Vial ONE (13:27)
[2019-06-24] MEDS ORDERED: Lidocaine 1% (PF) 30 ML VIAL ONE (13:32)
--- NOTE | 2019-06-24 14:57 | RAD ---
PORTABLE CHEST 1 VIEW: DATE: 06/24/2019. TIME: 2:20 p.m. HISTORY: Cardiac device placement. FINDINGS: Comparison is made with the exam of 06/20/2019. There has been interval placement of a left-sided pa cemaker device with bipolar leads in the right atrium and the right ventricle. No pneumothoraces are seen. Calcified granulomata at the left lung base is again noted. The heart size is stable. The a vivienne is tortuous. No lobar consolidation is seen. Degenerative changes in the AC joints are again n oted. There are changes of bilateral rotator cuff tear which were also seen on the previous exam. IMPRESSION: No acute process. POS: [facility]
[2019-06-24] MEDS ORDERED: ALPRAZolam 1 MG TAB PO PRN (16:30)
--- NOTE | 2019-06-24 17:04 | PQF ---
CLINICAL DOCUMENTATION IMPROVEMENT CLARIFICATION FORM: ICD-10 Updated PLEASE DO AN ADDENDUM TO THE PROGRESS NOTE WITH ANY DOCUMENTATION UPDATES OR ADDITIONS AND CARRY THROUGH TO DC SUMMARY. THANK YOU. DATE: 06/24/2018 ; 06/25/2018 ATTN: Dr. Chapa Please exercise your independent, professional judgment in responding to the clarification form. Clinical indicators are provided on the bottom of this form for your review Please check appropriate box(s): HEART FAILURE: A. TYPE [ ] Systolic / HFrEF [ ] Diastolic / HFpEF [ ] Combined Systolic / Diastolic [ x] Other diagnosis __chronic chf with diastolic dysfunction with no decompensation [ ] Unable to determine For continuity of documentation, please document condition throughout progress notes and discharge summary. Thank You. CLINICAL INDICATORS - SIGNS / SYMPTOMS / LABS / RESULTS AND LOCATION IN EMR PN 06/22: CHRONIC CHF. Status: Acute PN 06/22 (Almaz Koo FILM REPLACEMENT ORDERER) Chronic CHF Echocardiogram shows preserved EF, 55-60 %, mild MR, normal LA size, normal AV. Mildly elevated PA pressures. RISKS: H&P 06/20: 83 yo with PMH of CHF, HTN. TREATMENT: Order 06/20-06/22: Apresoline 25 mg po TID Order 06/22: Apresoline 75 mg po TID MAR: Order 06/21: Cozaar 100mg po daily Thank you, Lula (This form is maintained as a part of the permanent medical record) 2014 [employer] All Rights Reserved Lula Kaur, RN, BSN [email or web address] Office: [phone] [facility]
--- NOTE | 2019-06-24 20:33 | CCL ---
DATE OF PROCEDURE: 06/24/19 This is an 83-year-old female with hypertension, severe bradycardia on medications and she needs to h ave the medication continued for beta blockers. She also had intermittent third degree AV heart block . It was advised she undergo pacemaker insertion. This was performed today without difficulties or co mplications. A full dictated note will be found on the chart. She was implanted with a dual chamber p acemaker from [employer], an Rachna XT with the upper rate of 120 and the lower rate was set at 60. The re were two screw-in leads placed. One in the atrium and on in the ventricle. There were no complicat ions or difficulties encountered.
[2019-06-24] MEDS ORDERED: Metoprolol Tartrate 50 MG TAB PO SCH (21:00)
[2019-06-24] MEDS: Terazosin HCl 1 MG CAP PO SCH (21:11)
[2019-06-24] MEDS: Rosuvastatin 10 MG TAB PO SCH (21:11)
[2019-06-25] MEDS: Acetaminophen 325 MG TAB PO PRN (04:18)
--- NOTE | 2019-06-25 08:10 | PDOC.CPN ---
- Subjective Date: 06/25/19 Time: 08:08 - Objective Allergies/Adverse Reactions: Allergies Allergy/AdvReac Type Severity Reaction Status Date / Time rivaroxaban [From Xarelto] Allergy Verified 06/20/19 16:44 Visit Medications: Current Medications Acetaminophen (Tylenol) 650 mg PO Q4H PRN PRN Reason: Headache/Fever/Mild Pain (1-3) Last Admin: 06/25/19 04:18 Dose: 650 mg Alprazolam (Xanax) 1 mg PO HSPRN PRN PRN Reason: Insomnia Last Admin: 06/24/19 21:11 Dose: 1 mg Hydralazine HCl (Apresoline) 10 mg SLOW IVP Q4H PRN PRN Reason: SBP Greater Than 180 Last Admin: 06/22/19 04:34 Dose: 10 mg Hydralazine HCl (Apresoline) 50 mg PO TID [facility] Losartan Potassium (Cozaar) 100 mg PO DAILY [facility] Last Admin: 06/24/19 09:56 Dose: 100 mg Metoprolol Tartrate (Lopressor) 75 mg PO BID [facility] Nifedipine (Procardia Xl) 60 mg PO BID [facility] Last Admin: 06/24/19 21:11 Dose: 60 mg Ondansetron HCl (Zofran) 4 mg IVP Q6H PRN PRN Reason: Nausea/Vomiting Rosuvastatin Calcium (Crestor) 10 mg PO HS [facility] Last Admin: 06/24/19 21:11 Dose: 10 mg Sodium Chloride (Flush - Normal Saline) 10 ml IVF PRN PRN PRN Reason: Saline Flush Sodium Chloride (Flush - Normal Saline) 10 ml IVF Q12HR [facility] Last Admin: 06/24/19 21:12 Dose: 10 ml Sodium Chloride (Flush - Normal Saline) 10 ml IVF PRN PRN PRN Reason: Saline Flush Terazosin HCl (Hytrin) 1 mg PO HS [facility] Last Admin: 06/24/19 21:11 Dose: 1 mg Vital Signs & Weight: Vital Signs Temp Pulse Resp BP Pulse Ox 06/25/19 04:10 98.1 F 74 20 168/77 H 93 L 06/24/19 23:10 98.6 F 76 15 137/63 94 L 06/24/19 21:11 94 Weight 188 lb - Quality Measures Condition: Atrial Fibrillation/Flutter (hx or current), Heart Failure CV meds: Beta Renato: Yes, SVEN/ARB: Yes, Statin: Yes, Anticoagulant: Yes - Labs Result Diagrams: 06/24/19 09:07 06/24/19 09:07 Troponin/CKMB CK-MB (CK-2) 1.4 ng/mL (0-6.6) 06/20/19 12:36 Troponin I 0.029 ng/mL (< 0.028) H 06/20/19 19:02 - Assessment/Plan Assessment/Plan: <PM Site check> PM site LAST TRIMMER without any drainage; mild hematoma; the pt denied pain or discomfort to the site; F/u with Dr Shaffer' nurse within 10 days for the PM site check and f/u with Dr Paez as her f/u schedule.
[2019-06-25] MEDS ORDERED: Metoprolol Tartrate 50 MG TAB PO SCH (09:00)
[2019-06-25] MEDS ORDERED: hydrALAZINE 25 MG TAB PO SCH (09:00)
[2019-06-25] MEDS: NIFEdipine XL 60 MG TAB PO SCH (09:48)
[2019-06-25] MEDS: Losartan 25 MG TAB PO SCH (09:49)
[2019-06-25 12:39] VITALS: TEMP 97.9
[2019-06-25 13:36] VITALS: BP 184/75
== END 2019-06-25 14:42 | disposition home health service (06) | DRG 243 ==
LOC: ERS 11:36 → ERHOLD 14:28 → OBSVTOIN 14:28 → INTOOBSV 14:28 → 2SW 16:48
PROVIDERS: ADMIT Internal Medicine; ATTEND Internal Medicine
PROC: 4A023N7 Measurement of Cardiac Sampling and Pressure, Left Heart, Percutaneous Approach (ICD-10-PCS; principal; 2019-06-24)
PROC: 0JH606Z Insertion of Pacemaker, Dual Chamber into Chest Subcutaneous Tissue and Fascia, Open Approach (ICD-10-PCS; 2019-06-24)
PROC: 02H63JZ Insertion of Pacemaker Lead into Right Atrium, Percutaneous Approach (ICD-10-PCS; 2019-06-24)
PROC: 02HK3JZ Insertion of Pacemaker Lead into Right Ventricle, Percutaneous Approach (ICD-10-PCS; 2019-06-24)
PROC: B2111ZZ Fluoroscopy of Multiple Coronary Arteries using Low Osmolar Contrast (ICD-10-PCS; 2019-06-24)
DX: R00.1 Bradycardia, unspecified (principal); N17.9 Acute kidney failure, unspecified; I97.638 Postprocedural hematoma of a circulatory system organ or structure following other circulatory system procedure; I50.32 Chronic diastolic (congestive) heart failure; I48.20 Chronic atrial fibrillation, unspecified; I11.0 Hypertensive heart disease with heart failure; G89.29 Other chronic pain; Z96.659 Presence of unspecified artificial knee joint; I48.0 Paroxysmal atrial fibrillation; I45.19 Other right bundle-branch block; E86.0 Dehydration; Y84.5 Insertion of gastric or duodenal sound as the cause of abnormal reaction of the patient, or of later complication, without mention of misadventure at the time of the procedure; Y71.3 Surgical instruments, materials and cardiovascular devices (including sutures) associated with adverse incidents; Z79.01 Long term (current) use of anticoagulants
CPT/HCPCS: 33208; 36415; 70450; 71045; 80048; 80053; 81003; 82550; 82553; 82565; 83735; 83880; 84484; 85014; 85018; 85025; 85049; 85610; 85730; 87040; 87086; 93005; 93010; 93306; 93798; 94760; 96365; 96367; 99152; 99153; C1785; C1898; J0360; J0456; J0690; J0696; J1580; J2001; J2250; J3490

== ENCOUNTER 2019-08-05 17:35 | Observation (INO) | payer MEDICARE ==
[2019-08-05 18:19] LABS: #Basophils 0.1 thou/uL (0.0-0.2); #Eosinphils 0.4 thou/uL (0.0-0.7); #Lymphocytes 1.6 thou/uL (1.20-3.40); #Monocytes 0.6 thou/uL (0.11-0.59); #Neutrophils 4.7 thou/uL (1.40-6.50); %Basophils 0.9 % (0.0-1.0); %Eosinophils 5.1 % (0.0-10.0); %Lymphocytes 21.9 % (21.0-51.0); %Monocytes 8.7 % (0.0-10.0); %Neutrophils 63.4 % (42.0-75.0); Hemoglobin 13.4 g/dL (12.0-16.0); Mean Corpuscular HGB CONC 33.5 g/dL (32.0-36.0); Mean Corpuscular Volume 98.4 fL (78.0-98.0); Platelet Count 219 thou/uL (130-400); RBC Distribution Width 12.3 % (11.5-14.5); Red Blood Cell (RBC) Count 4.04 mill/uL (4.20-5.40); White Blood Cell (WBC) Count 7.3 thou/uL (4.8-10.8)
--- NOTE | 2019-08-05 18:22 | RAD ---
Chest AP view INDICATION: Altered mental status COMPARISON: June 24, 2019 FINDINGS: Lungs:Stable chronic lung changes. Stable calcified granuloma within the left lung base. Cardiac silhouette:Stable mild cardiomegaly and dual-lead pacemaker. Pulmonary vasculature:Normal Pleural spaces:No pleural effusion or pneumothorax is demonstrated. Upper abdomen:No abnormality seen. Osseous structures: No acute osseous abnormality. Additional findings:None. IMPRESSION: No acute cardiopulmonary abnormality.
[2019-08-05 18:37] LABS: ALT (SGPT) 13 U/L (8-55); AST (SGOT) 26 U/L (5-34); Albumin 4.5 g/dL (3.4-4.8); Alkaline Phosphatase 79 U/L (40-110); Anion Gap 18 mmol/L (10-20); BUN (Urea Nitrogen) 29 mg/dL (9.8-20.1); Bilirubin, Total 0.4 mg/dL (0.2-1.2); Calc. Creatinine Clearance 0 mL/min (70-130); Calcium 9.1 mg/dL (7.8-10.44); Carbon Dioxide 20 mmol/L (23-31); Chloride 106 mmol/L (98-107); Estimated GFR-MDRD 42; Globulin 2.3 g/dL (2.4-3.5); Glucose 101 mg/dL (83-110); Lipase 32 U/L (8-78); Potassium 4.1 mmol/L (3.5-5.1); Protein, Total 6.8 g/dL (6.0-8.3); Sodium 140 mmol/L (136-145)
--- NOTE | 2019-08-05 18:38 | CT ---
CT Brain WO Con: 08/05/2019 6:01 PM CLINICAL HISTORY: Concern for overdose. IMAGING TECHNIQUE: Multiple CT images were obtained of the brain without IV contrast. COMPARISON: June 20, 2019 FINDINGS: Brain: No acute infarct or hemorrhage is evident. No midline shift. Stable severe chronic small ves jamila white matter ischemic change. 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 Ventricles: Normal. No hydrocephalus. Skull: Intact. Visualized Paranasal sinuses: Clear. Mastoid air cells:Clear. Extracranial soft tissues:Normal. IMPRESSION: No acute intracranial abnormality.
[2019-08-05 19:24] LABS: Bilirubin Negative (Negative); Blood, Urine Negative (Negative); Clarity Clear (Clear); Glucose, Urine (Dipstick) Normal (Negative); Leukocyte Negative Leu/uL (Negative); Nitrite Negative (Negative); Protein, Urine (Dipstick) 30 mg/dL (Neg-Trace); RBC/HPF 0-3 HPF (0-3); Squamous Epithelial 0-3 HPF (0-3); Urobilinogen Normal mg/dL (Less than 2); WBC/HPF 0-3 HPF (0-3)
[2019-08-05 19:27] LABS: Bacteria/HPF 1+ HPF (None Seen)
[2019-08-05] MEDS ORDERED: Acetaminophen 650 MG Suppository PR PRN (21:06)
[2019-08-05] MEDS ORDERED: Acetaminophen 325 MG TAB PO PRN (21:06)
[2019-08-05] MEDS ORDERED: Sodium Chloride 0.45% 1,000 ML IV SCH (21:30)
[2019-08-05] MEDS ORDERED: Melatonin 3 MG TAB PO SCH (21:45)
[2019-08-05 21:53] LABS: Troponin I 0.075 ng/mL (< 0.028)
--- NOTE | 2019-08-05 22:15 | HP ---
TIME OF ASSESSMENT: 2000 hours. CHIEF COMPLAINT: Confusion. HISTORY OF PRESENT ILLNESS: Ms. Redd is an 83-year-old woman, who lives alone and has a past medical history of CHF, atrial fibrillation, hypertension, who presents to the emergency department due to family's concern over confusion. The patient apparently had been hallucinating early this morning, stating she saw raccoons running around in her home. She had no awareness of the time or day and was unsure if she missed or doubled up on her medications. She has not felt unwell in recent days and denies any recent fevers, chills, or sweats. No cough. No shortness of breath or chest pain. No urinary symptoms and no changes with her bowels. Denies any diarrhea. Does report chronic constipation, managed with "vegetarian stool softeners". The patient is currently at baseline. She denies any complaints. In the emergency department, she underwent an EKG that showed a complete right bundle-branch block and a first-degree AV block with T-wave inversion on the anterior and inferior leads. She had laboratory studies done including a troponin which was indeterminate at 0.073. She had a sodium of 140, potassium 4.1, and renal function elevated from baseline with a BUN of 29, creatinine 1.1, GFR 42. CK-MB was 3. White blood count 7.3, hemoglobin 13.4, hematocrit 39.8, platelets 219. She had a urinalysis done, which showed 30 of protein, 1+ bacteria, and 4-6 hyaline casts. Of note, she had a TSH done which was normal. Chest x-ray completed showing no acute cardiopulmonary abnormality. She also had a CT of the brain done which was negative. Of note, the patient recently had an echocardiogram done June 20, 2019, showing an EF of 55% to 60% with mild mitral regurgitation and mild tricuspid regurgitation. Otherwise, unremarkable. She had been admitted at that time with symptomatic bradycardia and a syncopal episode and ended up having a pacemaker placed by Dr. Shaffer. PAST MEDICAL HISTORY: 1. CHF. 2. Atrial fibrillation. 3. Arthritis. 4. Chronic back pain. 5. Hypertension. PAST SURGICAL HISTORY: 1. Bilateral total knee replacement. 2. Pacemaker placed May 2019. SOCIAL HISTORY: The patient lives alone and is fully independent. Denies any alcohol consumption, tobacco use, or illicit drug use. ALLERGIES: XARELTO. CURRENT MEDICATIONS: 1. Furosemide. 2. Hydralazine. 3. Losartan. 4. Rosuvastatin. 5. Nifedipine. 6. Metoprolol succinate. 7. Potassium. 8. Tylenol No. 3. 9. Eliquis. PHYSICAL EXAMINATION: GENERAL: The patient appears well developed, well nourished, is in no acute distress. VITAL SIGNS: Temperature 98.4, pulse 66, blood pressure 184/78, respirations 17, and O2 saturation 97% on room air. HEENT: Normocephalic and atraumatic. Pupils are equal, round, reactive to light. Sclerae without icterus. Oropharynx is clear. NECK: Supple. No lymphadenopathy. LUNGS: Clear to auscultation bilaterally without wheezes, rales, or rhonchi. CARDIAC: Regular rate and rhythm. Audible systolic murmur. ABDOMEN: Soft, nontender, nondistended. Normoactive bowel sounds present. No guarding or rigidity. No renal angle tenderness. EXTREMITIES: No lower leg edema. No calf tenderness. NEUROLOGIC: Alert and oriented x3. Power 5/5 in all limbs. Facial movements normal. Speech normal. Sensation intact. Extraocular movements normal. SKIN: Warm and dry. INVESTIGATIONS: As mentioned above in HPI. IMPRESSION AND PLAN: Ms. Redd is a pleasant 83-year-old woman, brought in by EMS due to concerns of her confusion that started early hours this morning. The patient is being admitted for the followin. Acute coronary syndrome rule out. She apparently had laboratory studies done including a troponin that was elevated at 0.073. We will continue to trend troponins. Dr. Morris has advised scheduling a stress test for the morning. The patient without any chest pain. She will be on continuous cardiac monitoring. We will check lipid panel with morning labs. We will add a BNP and magnesium. 2. Confusion. The patient with no signs or symptoms of infection; however, family states she has not been sleeping much as of recently. This could be contributing to the confusion. Urinalysis was unremarkable. White blood count unremarkable. We will add lactic acid and procalcitonin. For sleep, we will start her on melatonin. 3. Hypertension. Monitor blood pressure and resume home medications once verified. 4. Atrial fibrillation. Continue Eliquis. 5. Chronic back pain. Resume home medications once verified. 6. Gastrointestinal prophylaxis with famotidine. 7. Deep venous thrombosis prophylaxis. The patient is ambulatory and already on anticoagulation. 8. Code status, full. Surrogate decision maker is her daughter, Maria Elena Carcamo. The patient's case was discussed with Dr. Morris, who agrees with plan of care as described above. Job ID: [id number]
[2019-08-05 22:30] LABS: Lactic Acid 0.9 mmol/L (0.5-2.2)
[2019-08-05 22:50] VITALS: BMI 33.7
[2019-08-06 01:03] LABS: Troponin I 0.087 ng/mL (< 0.028)
[2019-08-06 05:06] LABS: #Monocytes 0.7 thou/uL (0.11-0.59); #Neutrophils 3.7 thou/uL (1.40-6.50); %Basophils 0.3 % (0.0-1.0); %Eosinophils 12.9 % (0.0-10.0); %Monocytes 9.5 % (0.0-10.0); %Neutrophils 50.3 % (42.0-75.0); Hemoglobin 11.3 g/dL (12.0-16.0); Mean Corpuscular HGB CONC 33.9 g/dL (32.0-36.0); Mean Corpuscular Hemoglobin 33.4 pg (27.0-31.0); Mean Corpuscular Volume 98.4 fL (78.0-98.0); Platelet Count 192 thou/uL (130-400); RBC Distribution Width 12.2 % (11.5-14.5); Red Blood Cell (RBC) Count 3.38 mill/uL (4.20-5.40); White Blood Cell (WBC) Count 7.4 thou/uL (4.8-10.8)
[2019-08-06 05:34] LABS: Anion Gap 12 mmol/L (10-20); BUN (Urea Nitrogen) 26 mg/dL (9.8-20.1); Calc. Creatinine Clearance 54 mL/min (70-130); Calcium 8.7 mg/dL (7.8-10.44); Carbon Dioxide 23 mmol/L (23-31); Cardiac Risk 2.5 (Less than 4.5); Chloride 109 mmol/L (98-107); Cholesterol 118 mg/dl (< 200 Desired); Estimated GFR-MDRD 55; Glucose 123 mg/dL (83-110); HDL Cholesterol 47 mg/dL (>60 Neg Risk); LDL Cholesterol, Calculated 58 mg/dL; Potassium 3.5 mmol/L (3.5-5.1); Sodium 140 mmol/L (136-145); Triglycerides 67 mg/dL (Less than 150)
[2019-08-06] MEDS ORDERED: Famotidine/PF 20 mg/2ml Vial SLOW IVP SCH (09:00)
[2019-08-06] MEDS ORDERED: Aspirin 325 mg Enteric Coated Tablet PO SCH (09:00)
[2019-08-06 11:37] VITALS: TEMP 97.4
[2019-08-06] MEDS ORDERED: Aspirin 81 mg Enteric Coated Tablet ONE (11:57)
[2019-08-06] MEDS ORDERED: Losartan 25 MG TAB PO SCH (12:00)
[2019-08-06] MEDS ORDERED: NIFEdipine XL 60 MG TAB PO SCH ×2 (12:00→21:00)
--- NOTE | 2019-08-06 12:46 | CON ---
DATE OF CONSULTATION: HISTORY OF PRESENT ILLNESS: The patient is an 83-year-old woman, who presented after she became confused. The patient has a previous history of atrial fibrillation. She is on chronic anticoagulation therapy. The patient has previously had placement of electronic ventricular pacemaker. The patient suddenly got confused. She took some extra medication. She came to the emergency room for further evaluation. The patient denies having any chest discomfort. The patient denies having any dyspnea, PND, or orthopnea. PAST MEDICAL HISTORY: 1. Atrial fibrillation. 2. Hypertension. 3. Dyslipidemia. PAST SURGICAL HISTORY: Knee surgery. ALLERGIES: XARELTO. MEDICATIONS: See nursing list. SOCIAL HISTORY: Nonsmoker. PHYSICAL EXAMINATION: GENERAL: Well-developed woman, in no acute distress. Alert and oriented x3. VITAL SIGNS: Blood pressure 186/76. NECK: No jugular venous distention. LUNGS: Clear to auscultation. HEART: Irregular rate and rhythm. Normal S1 and S2. ABDOMEN: Distended. EXTREMITIES: Show no edema. VASCULAR: Radial pulses 2+. LABORATORY DATA: Sodium 140, potassium 3.5, chloride 109, creatinine 0.97, and glucose is 123. Troponin 0.87. White blood cell count 7.4, hemoglobin 11.3, hematocrit 33.3, and platelets are 192. IMAGING DATA: EKG revealed sinus rhythm with first-degree AV block, right bundle-branch block, and a T-wave abnormality suggestive of ischemia. IMPRESSION: 1. Altered mental status. 2. History of paroxysmal atrial fibrillation. 3. History of diastolic heart failure. 4. Hypertension, poorly controlled. 5. History of pacemaker placement. This patient presents with altered mental status. She has an indeterminate troponin level and is asymptomatic. From a cardiac standpoint, I have no further recommendations. Job ID: [id number] [facility]
[2019-08-06 13:13] VITALS: BP 164/74
--- NOTE | 2019-08-06 17:53 | DIS ---
DATE OF ADMISSION: 08/05/2019 DATE OF DISCHARGE: 08/06/2019 DISCHARGE DIAGNOSES: 1. Acute metabolic encephalopathy, most likely secondary to possible medication induced. 2. Anemia. 3. Mildly elevated troponins. HOSPITAL COURSE: The patient is an 83-year-old female, who initially presented to the hospital with complaints of change in mental status. Please refer to the H and P for further details. Per H and P, it states that the patient was seeing animals. At this time, upon talking with the family, the family stated that the patient got her medication days mixed up and there was most likely a possibility that she double dosed on her medications. Initially, a stress test was ordered; however, Cardiology had recommended a consult. At this time, a consult was done by her normal pot puller who did not see that the patient required any further testing. The stress test was ordered for mildly elevated troponins and mildly elevated BNP. She did have a CT brain, which indicated severe chronic small vascular disease and possible chronic lacunar infarct. I did discuss this with the family and recommended an MRI brain; however, they did not feel comfortable waiting and wanted to do it as an outpatient. I recommended to follow up with MRI brain without noncontrast as an outpatient. The patient on evaluation was at baseline and she will be discharged home. PHYSICAL EXAMINATION: VITAL SIGNS: On discharge, temperature 98.0, pulse 67, respirations 20, 98% on room air, blood pressure 167/74. GENERAL: She is awake, alert, and oriented x3. Does not appear in distress. CV: S1 and S2 present. No murmurs, rubs, or gallops. ABDOMEN: Soft and nontender. Bowel sounds are present x2. MEDICATIONS: All her medications have been continued. There were no changes in her medications. her medications are as of the followin. Lasix 40 mg daily. 2. Losartan 100 mg daily. 3. Rosuvastatin 10 mg at bedtime. 4. Procardia 60 mg b.i.d. 5. Metoprolol 75 mg b.i.d. 6. Apixaban 5 mg p.o. b.i.d. Job ID: [id number]
[2019-08-06] MEDS ORDERED: Rosuvastatin 10 MG TAB PO SCH (21:00)
[2019-08-06] MEDS ORDERED: Icosapent Ethyl 1 GM CAPSULE PO SCH (21:00)
[2019-08-06] MEDS ORDERED: Melatonin 3 MG TAB PO SCH (21:00)
[2019-08-06] MEDS ORDERED: Metoprolol Tartrate 50 MG TAB PO SCH (21:00)
[2019-08-06] MEDS ORDERED: Apixaban 5 MG TAB PO SCH (21:00)
[2019-08-07] MEDS ORDERED: Losartan 25 MG TAB PO SCH (09:00)
--- NOTE | 2019-08-12 16:46 | EKG ---
Test Reason : Blood Pressure : / mmHG Vent. Rate : 070 BPM Atrial Rate : 070 BPM P-R Int : 226 ms QRS Dur : 134 ms QT Int : 440 ms P-R-T Axes : 093 052 -37 degrees QTc Int : 475 ms Sinus rhythm with 1st degree A-V block Right bundle branch block T wave abnormality, consider inferior ischemia Abnormal ECG Confirmed by VANESSA TOLBERT DO ([id number]), editor city SONALI MILAN ([id number]) on 08/12/2019 4:46:31 PM Referred By: Confirmed By:VANESSA TOLBERT DO
== END 2019-08-06 15:10 | disposition home or self-care (01) ==
LOC: ERS 17:35 → 2SW 20:05 → ERHOLD 22:06 → 2SW 22:49
PROVIDERS: ADMIT Internal Medicine; ATTEND Internal Medicine
DX: G93.41 Metabolic encephalopathy (principal); I11.0 Hypertensive heart disease with heart failure; I50.30 Unspecified diastolic (congestive) heart failure; I48.0 Paroxysmal atrial fibrillation; I44.0 Atrioventricular block, first degree; I45.10 Unspecified right bundle-branch block; M19.90 Unspecified osteoarthritis, unspecified site; G89.29 Other chronic pain; M54.9 Dorsalgia, unspecified; Z79.01 Long term (current) use of anticoagulants; Z79.899 Other long term (current) drug therapy; Z95.0 Presence of cardiac pacemaker
CPT/HCPCS: 70450; 71045; 80048; 80061; 82553; 83605; 83690; 83735; 83880; 84484 ×3; 85025; 87086; 93005; 94760; 96361 ×2; 96374; 97139 ×3; 99285; G0378 ×2; 36415; 80053; 81003; 81015; 84443; S0028

== ENCOUNTER 2020-03-22 17:51 | Inpatient (IN) | payer MEDICARE, OTHER ==
[2020-03-22 18:43] LABS: #Basophils 0.1 thou/uL (0.0-0.2); #Eosinphils 0.8 thou/uL (0.0-0.7); #Lymphocytes 1.7 thou/uL (1.20-3.40); #Monocytes 0.9 thou/uL (0.11-0.59); #Neutrophils 4.4 thou/uL (1.40-6.50); %Basophils 1.2 % (0.0-1.0); %Eosinophils 10.2 % (0.0-10.0); %Lymphocytes 21.7 % (21.0-51.0); %Monocytes 11.8 % (0.0-10.0); %Neutrophils 55.2 % (42.0-75.0); Bilirubin Negative (Negative); Blood, Urine Negative (Negative); Clarity Clear (Clear); Glucose, Urine (Dipstick) Normal (Negative); Ketone, Urine Negative (Negative); Leukocyte Negative Leu/uL (Negative); Mean Corpuscular Hemoglobin 33.1 pg (27.0-31.0); Mean Platelet Volume 7.5 fL (7.4-10.4); Nitrite Negative (Negative); Platelet Count 273 thou/uL (130-400); Protein, Urine (Dipstick) Negative (Neg-Trace); RBC Distribution Width 11.7 % (11.5-14.5); Red Blood Cell (RBC) Count 3.31 mill/uL (4.20-5.40); Specific Gravity, Urine 1.006 (1.002-1.036); Urobilinogen Normal mg/dL (Less than 2); White Blood Cell (WBC) Count 7.9 thou/uL (4.8-10.8)
--- NOTE | 2020-03-22 18:51 | RAD ---
XR Chest 1 View Portable HISTORY: Shortness of breath, dyspnea COMPARISON: 08/05/2019 FINDINGS: The heart size is mildly enlarged. The aorta is tortuous. Left-sided pacemaker device remai ns in place. The lungs are without focal areas of consolidation, pneumothorax, aide pulmonary edema or pleural effusions. There is mild prominence of the pulmonary vasculature
[2020-03-22 19:02] LABS: ALT (SGPT) 27 U/L (8-55); AST (SGOT) 32 U/L (5-34); Albumin 3.9 g/dL (3.4-4.8); Alkaline Phosphatase 76 U/L (40-110); Anion Gap 17 mmol/L (10-20); BUN (Urea Nitrogen) 42 mg/dL (9.8-20.1); Bilirubin, Total 0.3 mg/dL (0.2-1.2); CK (CPK) 54 U/L (29-168); Calc. Creatinine Clearance 0 mL/min (70-130); Calcium 8.5 mg/dL (7.8-10.44); Carbon Dioxide 17 mmol/L (23-31); Chloride 102 mmol/L (98-107); Estimated GFR-MDRD 52; Globulin 2.5 g/dL (2.4-3.5); Glucose 106 mg/dL (83-110); Potassium 4.4 mmol/L (3.5-5.1); Protein, Total 6.4 g/dL (6.0-8.3); Sodium 132 mmol/L (136-145)
[2020-03-22 19:23] LABS: CKMB 1.8 ng/mL (0-6.6)
[2020-03-22] MEDS ORDERED: Furosemide 40 MG/4 ML VIAL ONE (19:29)
[2020-03-22] MEDS ORDERED: Aspirin Chewable 81 MG TAB ONE (19:29)
--- NOTE | 2020-03-22 20:21 | PDOC.HHP ---
Hospitalist HPI - History of Present Illness Shortness of breath History of Present Illness: 84-year-old woman with a history of chronic diastolic heart failure, atrial fibrillation, status post pacemaker, history of hypertension presented to the emergency department with a complaint of progressive shortness of breath of about 3 days duration. She was recently treated for UTI causing her to be confused. Patient is on Lasix therapy which also recently increased from 40 mg daily to 40 mg twice a day. She presented to the ED today because she became more short of breath both at rest and with exertion. Chest x-ray in the ED suggested mild prominence of the pulmonary vasculature. BNP elevated to 600. Troponins mildly elevated. Patient was noted to be tachypneic with the slightest exertion. She was tolerating room air with good oxygen saturation. Initial troponin elevated to 0.059. ED Course: Patient given a dose of 40 mg IV Lasix and aspirin. She is placed under observation for further management of CHF exacerbation. Hospitalist ROS - Review of Systems Other: Patient denied any chest pain, or palpitation. She endorsed occasional nonproductive cough. She denied any fever. Except as documented, all other systems reviewed and negative. - Medication Medications: Medication Instructions Recorded Confirmed Type Acetaminophen With Codeine 1 tab PO HS 06/20/19 08/06/19 History [Tylenol with Codeine #3] Furosemide [Lasix] 40 mg PO DAILY 06/20/19 08/06/19 History Losartan Potassium 100 mg PO DAILY 06/20/19 08/06/19 History Metoprolol Tartrate 75 mg PO BID 06/20/19 08/06/19 History NIFEdipine [Procardia XL] 60 mg PO BID 06/20/19 08/06/19 History Potassium Chloride [Klor-Con 10] 10 meq PO Q2DAYS 06/20/19 08/06/19 History Rosuvastatin [Crestor] 10 mg PO HS 06/20/19 08/06/19 History Apixaban [Eliquis] 5 mg PO BID 08/06/19 08/06/19 History hydrALAZINE [Apresoline] 25 mg PO TID 08/06/19 08/06/19 History Hospitalist History - Past Medical History Cardiac: reports: AFIB, CHF, HTN Heme/Onc: reports: no pertinent history Hepatobiliary: reports: no pertinent history Psych: reports: no pertinent history Musculoskeletal: reports: Chronic low back pain Rheumatologic: reports: no pertinent history Renal/: reports: no pertinent history Endocrine: reports: no pertinent history Dermatology: reports: no pertinent history - Past Surgical History Past Surgical History: reports: Total Knee Replacement, Other (Pacemaker) - Family History Family History: reports: no pertinent history - Social History Smoking Status: Never smoker Alcohol: reports: None Drugs: reports: none - Exam General Appearance: NAD, awake alert Eye: PERRL, anicteric sclera ENT: normocephalic atraumatic, no oropharyngeal lesions, moist mucosa Neck: supple, symmetric, no JVD, no thyromegaly Heart: no gallops, irregular Respiratory: rales (Mild bibasilar rales) Gastrointestinal: soft, non-tender, non-distended, no hepatomegaly, no splenomegaly Extremities: no cyanosis, no clubbing, 2+ LE edema (Bilateral) Neurological: cranial nerve grossly intact, no weakness, no focal deficits Musculoskeletal: normal tone, normal strength Psychiatric: normal affect, A&O x 3 Hospitalist Results - Labs Result Diagrams: 03/22/20 18:30 03/22/20 18:30 Lab results: WBC 7.9 thou/uL (4.8-10.8) 03/22/20 18:30 Hgb 11.0 g/dL (12.0-16.0) L 03/22/20 18:30 Hct 33.2 % (36.0-47.0) L 03/22/20 18:30 MCV 100.0 fL (78.0-98.0) H 03/22/20 18:30 Plt Count 273 thou/uL (130-400) 03/22/20 18:30 Neutrophils % 55.2 % (42.0-75.0) 03/22/20 18:30 Sodium 132 mmol/L (136-145) L 03/22/20 18:30 Potassium 4.4 mmol/L (3.5-5.1) 03/22/20 18:30 Chloride 102 mmol/L (98-107) 03/22/20 18:30 Carbon Dioxide 17 mmol/L (23-31) L 03/22/20 18:30 BUN 42 mg/dL (9.8-20.1) H 03/22/20 18:30 Creatinine 1.01 mg/dL (0.6-1.1) 03/22/20 18:30 Glucose 106 mg/dL (83-110) 03/22/20 18:30 Calcium 8.5 mg/dL (7.8-10.44) 03/22/20 18:30 Total Bilirubin 0.3 mg/dL (0.2-1.2) 03/22/20 18:30 AST 32 U/L (5-34) 03/22/20 18:30 ALT 27 U/L (8-55) 03/22/20 18:30 Alkaline Phosphatase 76 U/L (40-110) 03/22/20 18:30 Creatine Kinase 54 U/L (29-168) 03/22/20 18:30 CK-MB (CK-2) 1.8 ng/mL (0-6.6) 03/22/20 18:30 Troponin I 0.059 ng/mL (< 0.028) H 03/22/20 18:30 B-Natriuretic Peptide 626.0 pg/mL (0-100) H 03/22/20 18:30 Serum Total Protein 6.4 g/dL (6.0-8.3) 03/22/20 18:30 Albumin 3.9 g/dL (3.4-4.8) 03/22/20 18:30 Urine Ketones Negative mg/dL (Negative) 03/22/20 18:30 Urine Blood Negative (Negative) 03/22/20 18:30 Urine Nitrite Negative (Negative) 03/22/20 18:30 Ur Leukocyte Esterase Negative Gertrudis/uL (Negative) 03/22/20 18:30 - Radiology Interpretation Chest x-ray Status: report reviewed by me (Mild increased prominence of the pulmonary vasculature.) Hospitalist H&P A/P - Problem (1) Acute on chronic diastolic (congestive) heart failure Code(s): I50.33 - ACUTE ON CHRONIC DIASTOLIC (CONGESTIVE) HEART FAILURE Status: Acute (2) Accelerated hypertension Code(s): I10 - ESSENTIAL (PRIMARY) HYPERTENSION Status: Acute (3) Elevated troponin Code(s): R79.89 - OTHER SPECIFIED ABNORMAL FINDINGS OF BLOOD CHEMISTRY Status: Acute (4) Chronic anticoagulation Code(s): Z79.01 - RETIREMENT (CURRENT) USE OF ANTICOAGULANTS Status: Chronic (5) Paroxysmal atrial fibrillation Code(s): I48.0 - PAROXYSMAL ATRIAL FIBRILLATION Status: Chronic Assessment and Plan: Stable, rate controlled, paced rhythm. - Plan Plan: Place under observation in telemetry Continue to trend troponin. We will treat with IV Lasix 40 mg twice daily. Obtain echocardiogram Monitor for A. fib with RVR which could be the likely precipitant of the CHF exacerbation. Continue home dose metoprolol. Continue Eliquis. Added aspirin given elevated troponin. Aggressive blood pressure control. Will resume home antihypertensives. Labetalol IV as needed for BP spikes.
[2020-03-22 21:09] LABS: Troponin I 0.053 ng/mL (< 0.028)
[2020-03-22] MEDS: hydrALAZINE 25 MG TAB PO SCH (23:26)
[2020-03-22] MEDS: Apixaban 5 MG TAB PO SCH (23:26)
[2020-03-22] MEDS: Metoprolol Tartrate 25 MG TAB PO SCH (23:27)
--- NOTE | 2020-03-22 23:31 | PDOC.FMACP ---
Advance Care Planning - Problem (1) Acute on chronic diastolic (congestive) heart failure Status: Acute Code(s): I50.33 - ACUTE ON CHRONIC DIASTOLIC (CONGESTIVE) HEART FAILURE (2) Accelerated hypertension Status: Acute Code(s): I10 - ESSENTIAL (PRIMARY) HYPERTENSION (3) Elevated troponin Status: Acute Code(s): R79.89 - OTHER SPECIFIED ABNORMAL FINDINGS OF BLOOD CHEMISTRY (4) Chronic anticoagulation Status: Chronic Code(s): Z79.01 - SHELTER (CURRENT) USE OF ANTICOAGULANTS (5) Paroxysmal atrial fibrillation Status: Chronic Code(s): I48.0 - PAROXYSMAL ATRIAL FIBRILLATION - Note Participants: patient (Discussed living will. Patient has no living will. Surrogate decision maker is her daughter. She would like to remain full code. Discussed the need to have her end-of-life wishes documented. Time spent discussing advanced directive was about 20 minutes.) Summary: Advanced Care Planning was discussed. The diagnosis, prognosis and goals of care were discussed. All questions were answered.
[2020-03-22 23:41] LABS: Troponin I 0.051 ng/mL (< 0.028)
[2020-03-23 05:00] LABS: #Basophils 0.1 thou/uL (0.0-0.2); #Eosinphils 0.7 thou/uL (0.0-0.7); #Lymphocytes 1.7 thou/uL (1.20-3.40); #Monocytes 0.9 thou/uL (0.11-0.59); %Basophils 0.8 % (0.0-1.0); %Eosinophils 9.4 % (0.0-10.0); %Lymphocytes 23.5 % (21.0-51.0); %Monocytes 12.8 % (0.0-10.0); %Neutrophils 53.5 % (42.0-75.0); Hemoglobin 10.8 g/dL (12.0-16.0); Mean Corpuscular HGB CONC 34.1 g/dL (32.0-36.0); Mean Corpuscular Hemoglobin 33.6 pg (27.0-31.0); Mean Corpuscular Volume 98.6 fL (78.0-98.0); Mean Platelet Volume 7.8 fL (7.4-10.4); Platelet Count 263 thou/uL (130-400); RBC Distribution Width 11.8 % (11.5-14.5); White Blood Cell (WBC) Count 7.4 thou/uL (4.8-10.8)
[2020-03-23 05:24] LABS: Anion Gap 16 mmol/L (10-20); BUN (Urea Nitrogen) 42 mg/dL (9.8-20.1); Calc. Creatinine Clearance 52 mL/min (70-130); Carbon Dioxide 21 mmol/L (23-31); Chloride 105 mmol/L (98-107); Estimated GFR-MDRD 49; Potassium 3.8 mmol/L (3.5-5.1); Sodium 138 mmol/L (136-145)
[2020-03-23 05:25] LABS: Calcium 8.4 mg/dL (7.8-10.44); Glucose 105 mg/dL (83-110); Magnesium 2.1 mg/dL (1.6-2.6)
[2020-03-23] MEDS: Furosemide 40 MG/4 ML VIAL SLOW IVP SCH ×2 (06:48→14:39)
[2020-03-23] MEDS: hydrALAZINE 25 MG TAB PO SCH ×3 (09:59→21:02)
[2020-03-23] MEDS: Aspirin Chewable 81 MG TAB PO SCH (09:59)
[2020-03-23] MEDS: Apixaban 5 MG TAB PO SCH ×2 (09:59→21:02)
[2020-03-23] MEDS: Metoprolol Tartrate 25 MG TAB PO SCH ×2 (10:00→21:02)
[2020-03-23] MEDS ORDERED: Losartan 25 MG TAB PO SCH ×2 (10:21→10:30)
[2020-03-23] MEDS: Potassium Chloride 10 MEQ TAB PO SCH (11:22)
--- NOTE | 2020-03-23 11:47 | PDOC.HOSPP ---
- Subjective Subjective: feeling better, work with PT. Legs still swollen. denies of chest pain. pt of Dr. Paez, would like to see him as well - Objective Vital Signs & Weight: Vital Signs (12 hours) Temp Pulse Pulse Pulse Resp BP BP 03/23/20 09:30 69 72 150/70 H 202/85 H 03/23/20 07:17 97.5 F L 60 16 03/23/20 04:21 97.7 F 63 22 H 03/23/20 00:01 98.6 F 60 20 BP Pulse Ox Pulse Ox Pulse Ox 03/23/20 09:30 92 L 96 03/23/20 07:17 169/100 H 97 03/23/20 04:21 154/72 H 95 03/23/20 00:01 128/63 92 L Weight Weight 189 lb 6.4 oz I&O: 03/22/20 03/23/20 03/24/20 06:59 06:59 06:59 Intake Total 484 Output Total 1300 Balance -816 Result Diagrams: 03/23/20 04:42 03/23/20 04:42 Radiology Reviewed by me: Yes EKG Reviewed by me: Yes Hospitalist ROS - Medication Medications: Active Medications Generic Name Dose Route Start Last Admin Trade Name Freq PRN Reason Stop Dose Admin Apixaban 5 mg 03/22/20 21:00 03/23/20 09:59 Apixaban 5 Mg Tab PO 5 mg BID RANDALL Administration Aspirin 81 mg 03/23/20 09:00 03/23/20 09:59 Aspirin Chewable 81 Mg Tab PO 81 mg DAILY RANDALL Administration Furosemide 40 mg 03/23/20 06:00 03/23/20 06:48 Furosemide 40 Mg/4 Ml Vial SLOW IVP 03/24/20 06:01 40 mg 0600,1400 RANDALL Administration Hydralazine HCl 25 mg 03/22/20 21:00 03/23/20 09:59 Hydralazine 25 Mg Tab PO 25 mg TID RANDALL Administration Losartan Potassium 25 mg 03/23/20 10:30 03/23/20 11:21 Losartan 25 Mg Tab PO 03/23/20 14:00 25 mg NOW RANDALL Administration Metoprolol Tartrate 75 mg 03/22/20 21:00 03/23/20 10:00 Metoprolol Tartrate 25 Mg Tab PO 75 mg BID RANDALL Administration Potassium Chloride 10 meq 03/23/20 12:00 03/23/20 11:22 Potassium Chloride 10 Meq Tab PO 10 meq Q2DAYS RANDALL Administration - Exam General Appearance: NAD Eye: PERRL ENT: normocephalic atraumatic Neck: supple Heart: RRR Respiratory: CTAB, no wheezes Gastrointestinal: soft, non-tender, non-distended Extremities: 2+ LE edema (bilaterally) Skin: normal turgor Neurological: cranial nerve grossly intact Musculoskeletal: normal tone Psychiatric: normal affect, normal behavior, A&O x 3 Hosp A/P - Plan Assessment/Plan: Patient is a pleasant 84 years old female who has chronic diastolic heart failure, paroxysmal atrial fib with status post pacemaker, who presented with 3-day history as of worsening dyspnea. Acute on chronic diastolic heart failure --Continue IV diuresis, monitor his I&O and daily weight. Follow echo --Resume home medication. Blood pressure uncontrolled, add Losartan --Consult her sheet rock taper Accelerated hypertension --Blood pressure still uncontrolled. Continue hydralazine, beta-ayad, add Losartan Elevated troponin --Mild, no chest pain. Likely demand ischemia --Follow echo PAF --paced rhythm, cont Eliquis/BB
[2020-03-23 12:01] LABS: SARS-CoV-2 MS2 Positive; SARS-CoV-2 N Gene Negative; SARS-CoV-2 S Gene Negative; SARS-CoV-2 by NAA Not Detected (NotDetected); SARS-CoV-2 orf1ab Negative
--- NOTE | 2020-03-23 13:00 | CON ---
DATE OF CONSULTATION: 03/23/2020 REASON FOR CONSULTATION: Heart failure. PRIMARY BANQUET SERVER ON CALL: León Paez MD. HISTORY OF PRESENT ILLNESS: Mrs. Redd is a very pleasant 84-year-old white female, who comes to the hospital for shortness of breath. She was diagnosed with a urinary tract infection recently and has noticed that for the last 3 days, she has been slowly getting progressively more short of breath, so she decided to come in for further evaluation and was found to be in heart failure, likely diastolic dysfunction, which she has a chronic diastolic heart failure. She was given IV Lasix, has diuresed very well, and is already feeling a lot better. She states her breathing is lot closer to baseline and is able to lie flat on the bed with normal respiration. PAST MEDICAL HISTORY: 1. Chronic diastolic heart failure. 2. History of chronic atrial fibrillation, on anticoagulation. 3. Sick-sinus syndrome, status post pacemaker placed. 4. Hypertension. 5. Chronic low back pain. PAST SURGICAL HISTORY: 1. Total knee replacement. 2. Pacemaker placement. FAMILY HISTORY: Noncontributory. SOCIAL HISTORY: No alcohol, tobacco, or drugs. OUTPATIENT MEDICATIONS: 1. Tylenol No. 3. 2. Furosemide 40 mg a day. 3. Losartan 100 mg a day. 4. Metoprolol tartrate 75 mg b.i.d. 5. Nifedipine 60 mg b.i.d. 6. Potassium chloride 10 mEq every other day. 7. Rosuvastatin 10 mg at bedtime. 8. Eliquis 5 mg b.i.d. 9. Hydralazine 25 mg t.i.d. ALLERGIES: SHE HAS HAD REACTIONS TO RIVAROXABAN IN THE PAST. REVIEW OF SYSTEMS: A 12-point review of systems was done and was found to be negative other than stated in the history of present illness. PHYSICAL EXAMINATION: VITAL SIGNS: Temperature 98.2, pulse 60, respiratory rate 18, O2 sat 93% on room air, blood pressure 158/67. GENERAL: Awake, alert, oriented to person and place, some difficulty with time, in no distress. HEENT: Normocephalic, atraumatic. NECK: Supple. LUNGS: Clear. CARDIOVASCULAR: S1 and S2. No S3 or S4. No murmurs. ABDOMEN: Soft. Positive bowel sounds. EXTREMITIES: 2+ edema. SKIN: Warm and dry. LABORATORY DATA: Laboratory work was reviewed. COVID PCR was negative. Hematology with a white count of 7.4, hemoglobin of 10.8, hematocrit of 31, platelet count of 263. Chemistry was unremarkable. Troponin was 0.05, 0.05, 0.05, so three times indeterminate. BNP was 886. UA was unremarkable. Chest x-ray was reviewed. ASSESSMENT: 1. [id number] diastolic heart failure. 2. Hypertension, poorly controlled. 3. Recent urinary tract infection. PLAN: 1. Continue IV diuresis for one more day at least. She still has some swelling. 2. No need to repeat echocardiogram. She has had diastolic heart failure. She does this several times, more than likely she was decompensated from this high blood pressure as well as recent urinary tract infection, that apparently got her confused and she had missed some of her medications. Thank you for letting us to participate in the care of your patient. Dr. Paez is her primary strike warfare/missile systems officer, will follow up in the morning. Job ID: [id number]
[2020-03-23] MEDS: Rosuvastatin 10 MG TAB PO SCH (21:02)
[2020-03-23 23:42] VITALS: BMI 34.8
[2020-03-24 05:26] LABS: Anion Gap 13 mmol/L (10-20); BUN (Urea Nitrogen) 38 mg/dL (9.8-20.1); Calc. Creatinine Clearance 53 mL/min (70-130); Calcium 8.5 mg/dL (7.8-10.44); Carbon Dioxide 22 mmol/L (23-31); Chloride 105 mmol/L (98-107); Estimated GFR-MDRD 50; Glucose 110 mg/dL (83-110); Potassium 3.6 mmol/L (3.5-5.1); Sodium 136 mmol/L (136-145)
[2020-03-24] MEDS: Furosemide 40 MG/4 ML VIAL SLOW IVP SCH (06:02)
[2020-03-24] MEDS: hydrALAZINE 25 MG TAB PO SCH ×3 (08:30→21:07)
[2020-03-24] MEDS: Metoprolol Tartrate 25 MG TAB PO SCH ×2 (08:30→21:07)
[2020-03-24] MEDS: Aspirin Chewable 81 MG TAB PO SCH (08:30)
[2020-03-24] MEDS: Losartan 25 MG TAB PO SCH (08:30)
[2020-03-24] MEDS: Apixaban 5 MG TAB PO SCH ×2 (08:31→21:07)
[2020-03-24] MEDS ORDERED: Losartan 25 MG TAB PO SCH (09:00)
--- NOTE | 2020-03-24 14:46 | PDOC.CPN ---
- Subjective Date: 03/24/20 Time: 14:44 Interval history: She is doing much better. Breathing is back to baseline. - Review of Systems General: denies: fever/chills, weight/appetite/sleep changes, night sweats, fatigue Respiratory: denies: cough, congestion, shortness of breath, exercise intolerance Cardiovascular: denies: chest pain, palpitation, edema, paroxysmal nocturnal dyspnea, orthopnea Gastrointestinal: denies: nausea, vomiting, diarrhea, constipation, abd pain, GI bleeding Musculoskeletal: denies: pain, tenderness, stiffness, swelling, arthr itis/arthralgias Neurological: denies: numbness, syncope, seizure, weakness - Objective Allergies/Adverse Reactions: Allergies Allergy/AdvReac Type Severity Reaction Status Date / Time rivaroxaban [From Xarelto] Allergy Rash Verified 03/22/20 21:54 Visit Medications: Current Medications Apixaban (Apixaban 5 Mg Tab) 5 mg PO BID [facility] Last Admin: 03/24/20 08:31 Dose: 5 mg Documented by: Aspirin (Aspirin Chewable 81 Mg Tab) 81 mg PO DAILY [facility] Last Admin: 03/24/20 08:30 Dose: 81 mg Documented by: Hydralazine HCl (Hydralazine 25 Mg Tab) 25 mg PO TID [facility] Last Admin: 03/24/20 08:30 Dose: 25 mg Documented by: Losartan Potassium (Losartan 25 Mg Tab) 100 mg PO DAILY [facility] Last Admin: 03/24/20 08:30 Dose: 100 mg Documented by: Metoprolol Tartrate (Metoprolol Tartrate 25 Mg Tab) 75 mg PO BID [facility] Last Admin: 03/24/20 08:30 Dose: 75 mg Documented by: Potassium Chloride (Potassium Chloride 10 Meq Tab) 10 meq PO Q2DAYS [facility] Last Admin: 03/23/20 11:22 Dose: 10 meq Documented by: Rosuvastatin Calcium (Rosuvastatin 10 Mg Tab) 10 mg PO HS [facility] Last Admin: 03/23/20 21:02 Dose: 10 mg Documented by: Sodium Chloride (Flush - Normal Saline 10 Ml Syringe) 10 ml IVF Q12HR [facility] Last Admin: 03/24/20 08:31 Dose: 10 ml Documented by: Sodium Chloride (Flush - Normal Saline 10 Ml Syringe) 10 ml IVF PRN PRN PRN Reason: Saline Flush Vital Signs & Weight: Vital Signs Temp Pulse Pulse Pulse Resp BP BP 10/02/20 12:20 97.7 F 60 16 03/24/20 09:40 60 03/24/20 09:06 64 60 178/76 H 135/63 03/24/20 08:02 97.6 F 60 18 03/24/20 03:31 97.7 F 60 20 BP BP Pulse Ox Pulse Ox Pulse Ox 03/24/20 12:20 165/72 H 97 03/24/20 09:40 127/59 L 03/24/20 09:06 97 95 03/24/20 08:02 182/77 H 95 03/24/20 03:31 168/74 H 92 L Weight 189 lb 3.2 oz - Physical Exam General: alert & oriented x3 HEENT: mucus membranes moist Neck: supple neck Cardiac: regular rate and rhythm Lungs: normal breath sounds Neuro: no lateralizing findings Abdomen: active bowel sounds Extremities: no edema Skin: clear Musculoskeletal: no pain - Labs Result Diagrams: 03/23/20 04:42 03/24/20 04:16 Troponin/CKMB CK-MB (CK-2) 1.8 ng/mL (0-6.6) 03/22/20 18:30 Troponin I 0.051 ng/mL (< 0.028) H 03/22/20 23:10 - Telemetry Sinus rhythms and dysrhythmias: sinus rhythm - Assessment/Plan Assessment/Plan: 1. Acute on chronic diastolic CHF 2. Recent UTI. PLAN: - Seems euvolemic now. - Would switch back to her home diuretic regimen. - CV stable now. - Will sign off. Please call with any questions.
--- NOTE | 2020-03-24 17:07 | PDOC.HOSPP ---
- Subjective Subjective: Patient was seen examined at bedside. Her breathing is much better today, her lower extremity edema is much improved. Appreciate input from cardiology. Her urine culture came back positive for GNR, sensitivities pending. Patient was recently treated for UTI. However, her urine culture still remains positive for gram-negative judith - Objective Vital Signs & Weight: Vital Signs (12 hours) Temp Pulse Pulse Pulse Resp BP BP 03/24/20 15:41 97.9 F 62 16 03/24/20 12:20 97.7 F 60 16 03/24/20 09:40 60 03/24/20 09:06 64 60 178/76 H 135/63 03/24/20 08:02 97.6 F 60 18 BP Pulse Ox Pulse Ox Pulse Ox 03/24/20 15:41 173/74 H 96 03/24/20 12:20 165/72 H 97 03/24/20 09:40 127/59 L 03/24/20 09:06 97 95 03/24/20 08:02 182/77 H 95 Weight Weight 189 lb 3.2 oz I&O: 03/23/20 03/24/20 03/25/20 06:59 06:59 06:59 Intake Total 484 2080 240 Output Total 1300 2300 Balance -816 -220 240 Result Diagrams: 03/23/20 04:42 03/24/20 04:16 Radiology Reviewed by me: Yes EKG Reviewed by me: Yes Hospitalist ROS - Medication Medications: Active Medications Generic Name Dose Route Start Last Admin Trade Name Freq PRN Reason Stop Dose Admin Apixaban 5 mg 03/22/20 21:00 03/24/20 08:31 Apixaban 5 Mg Tab PO 5 mg BID [facility] Administration Aspirin 81 mg 03/23/20 09:00 03/24/20 08:30 Aspirin Chewable 81 Mg Tab PO 81 mg DAILY [facility] Administration Hydralazine HCl 25 mg 03/22/20 21:00 03/24/20 16:00 Hydralazine 25 Mg Tab PO 25 mg TID [facility] Administration Losartan Potassium 100 mg 03/24/20 09:00 03/24/20 08:30 Losartan 25 Mg Tab PO 100 mg DAILY [facility] Administration Metoprolol Tartrate 75 mg 03/22/20 21:00 03/24/20 08:30 Metoprolol Tartrate 25 Mg Tab PO 75 mg BID [facility] Administration Potassium Chloride 10 meq 03/23/20 12:00 03/23/20 11:22 Potassium Chloride 10 Meq Tab PO 10 meq Q2DAYS [facility] Administration Rosuvastatin Calcium 10 mg 03/23/20 21:00 03/23/20 21:02 Rosuvastatin 10 Mg Tab PO 10 mg HS [facility] Administration Sodium Chloride 10 ml 03/23/20 21:00 03/24/20 08:31 Flush - Normal Saline 10 Ml Syringe IVF 10 ml Q12HR [facility] Administration - Exam General Appearance: NAD Eye: PERRL ENT: normocephalic atraumatic Neck: supple Heart: RRR Respiratory: CTAB Extremities: 1+ LE edema Skin: normal turgor Neurological: cranial nerve grossly intact Psychiatric: normal affect, normal behavior, A&O x 3 Hosp A/P - Plan Assessment/Plan: Patient is a pleasant 84 years old female who has chronic diastolic heart failure, paroxysmal atrial fib with status post pacemaker, who presented with 3-day history as of worsening dyspnea. UTI --she was recently treated for UTI. UCx positive GNR on prelim --will start her Rocephin and follow MELVIN, likely precipitated her chf exac Acute on chronic diastolic heart failure - close to euvolemic --Continue IV diuresis, monitor his I&O and daily weight. Echo reviewed --Resume home medications. Blood pressure uncontrolled, add Losartan --Appreciate cardiology input --likely home tomorrow if her UCx finalized Accelerated hypertension --Blood pressure still uncontrolled. Continue hydralazine, beta-ayad, add Losartan --BP improved Elevated troponin --Mild, no chest pain. Likely demand ischemia --Echo reviewed, no further workup from cardiology standpoint PAF --paced rhythm, cont Eliquis/BB
[2020-03-24] MEDS: cefTRIAXone\\ROCEPHIN 1 GM in Sodium Chloride 0.9% 100 ML IVPB SCH (18:01)
[2020-03-24] MEDS: Rosuvastatin 10 MG TAB PO SCH (21:07)
[2020-03-24] MEDS ORDERED: hydrALAZINE 20 MG/ML VIAL SLOW IVP SCH (23:45)
[2020-03-24] MEDS ORDERED: cloNIDine 0.1 MG TAB PO SCH (23:45)
[2020-03-25 05:15] LABS: Anion Gap 15 mmol/L (10-20); BUN (Urea Nitrogen) 30 mg/dL (9.8-20.1); Calc. Creatinine Clearance 56 mL/min (70-130); Calcium 8.3 mg/dL (7.8-10.44); Carbon Dioxide 21 mmol/L (23-31); Chloride 106 mmol/L (98-107); Estimated GFR-MDRD 53; Glucose 93 mg/dL (83-110); Magnesium 2.1 mg/dL (1.6-2.6); Potassium 4.1 mmol/L (3.5-5.1); Sodium 138 mmol/L (136-145)
[2020-03-25] MEDS: Labetalol HCl 100 MG/20 ML VIAL SLOW IVP PRN (06:33)
[2020-03-25] MEDS: hydrALAZINE 25 MG TAB PO SCH ×3 (08:48→20:04)
[2020-03-25] MEDS: Losartan 25 MG TAB PO SCH (08:48)
[2020-03-25] MEDS: Metoprolol Tartrate 25 MG TAB PO SCH ×2 (08:48→20:04)
[2020-03-25] MEDS: Aspirin Chewable 81 MG TAB PO SCH (08:49)
[2020-03-25] MEDS: Apixaban 5 MG TAB PO SCH ×2 (08:49→20:04)
[2020-03-25] MEDS ORDERED: NIFEdipine XL 60 MG TAB PO SCH ×2 (10:15→21:00)
[2020-03-25] MEDS: Potassium Chloride 10 MEQ TAB PO SCH (11:48)
[2020-03-25] MEDS: cefTRIAXone\\ROCEPHIN 1 GM in Sodium Chloride 0.9% 100 ML IVPB SCH (17:34)
[2020-03-25] MEDS: Rosuvastatin 10 MG TAB PO SCH (20:03)
[2020-03-25] MEDS: NIFEdipine XL 60 MG TAB PO SCH (20:04)
[2020-03-26 04:34] LABS: Anion Gap 15 mmol/L (10-20); BUN (Urea Nitrogen) 29 mg/dL (9.8-20.1); Calc. Creatinine Clearance 54 mL/min (70-130); Calcium 8.5 mg/dL (7.8-10.44); Carbon Dioxide 22 mmol/L (23-31); Chloride 105 mmol/L (98-107); Estimated GFR-MDRD 51; Glucose 93 mg/dL (83-110); Potassium 3.7 mmol/L (3.5-5.1); Sodium 138 mmol/L (136-145)
[2020-03-26] MEDS: Aspirin Chewable 81 MG TAB PO SCH (09:13)
[2020-03-26] MEDS: NIFEdipine XL 60 MG TAB PO SCH ×2 (09:13→20:20)
[2020-03-26] MEDS: Metoprolol Tartrate 25 MG TAB PO SCH ×2 (09:13→20:19)
[2020-03-26] MEDS: Losartan 25 MG TAB PO SCH (09:13)
[2020-03-26] MEDS: Apixaban 5 MG TAB PO SCH ×2 (09:14→20:19)
[2020-03-26] MEDS: hydrALAZINE 25 MG TAB PO SCH ×3 (09:14→20:20)
--- NOTE | 2020-03-26 14:22 | PDOC.HOSPP ---
- Subjective Encounter Date: 03/25/20 Encounter Time: 10:30 Subjective: pt up in bed still feels sob but feels it has improved from before - Objective Vital Signs & Weight: Vital Signs (12 hours) Temp Pulse Pulse Pulse Resp BP BP 03/26/20 11:10 97.5 F L 62 17 03/26/20 10:00 82 65 180/77 H 164/70 H 03/26/20 09:14 71 03/26/20 09:13 71 03/26/20 09:09 98.3 F 71 18 03/26/20 06:35 03/26/20 03:00 98.6 F 67 15 BP Pulse Ox Pulse Ox Pulse Ox 03/26/20 11:10 160/69 H 90 L 03/26/20 10:00 95 95 03/26/20 09:14 03/26/20 09:13 03/26/20 09:09 179/76 H 97 03/26/20 06:35 158/74 H 03/26/20 03:00 174/75 H 95 Weight Weight 190 lb 0.968 oz I&O: 03/25/20 03/26/20 03/27/20 06:59 06:59 06:59 Intake Total 1080 1060 Output Total 900 Balance 180 1060 Result Diagrams: 03/23/20 04:42 03/26/20 03:41 Hospitalist ROS - Review of Systems Respiratory: reports: shortness of breath Cardiovascular: denies: chest pain, palpitations, orthopnea, paroxysmal noc. dyspnea, edema, light headedness, other Gastrointestinal: denies: nausea, vomiting, abdominal pain, diarrhea, constipation, melena, hematochezia, other - Medication Medications: Active Medications Generic Name Dose Route Start Last Admin Trade Name Freq PRN Reason Stop Dose Admin Apixaban 5 mg 03/22/20 21:00 03/26/20 09:14 Apixaban 5 Mg Tab PO 5 mg BID [facility] Administration Aspirin 81 mg 03/23/20 09:00 03/26/20 09:13 Aspirin Chewable 81 Mg Tab PO 81 mg DAILY [facility] Administration Hydralazine HCl 25 mg 03/22/20 21:00 03/26/20 09:14 Hydralazine 25 Mg Tab PO 25 mg TID [facility] Administration Ceftriaxone Sodium 1 gm/ 100 mls @ 200 mls/hr 03/24/20 17:00 03/25/20 17:34 Sodium Chloride IVPB 100 mls Q24HR [facility] Administration Labetalol HCl 10 mg 03/25/20 06:24 03/25/20 06:33 Labetalol Hcl 100 Mg/20 Ml Vial SLOW IVP 10 mg Q4H PRN Administration SBP Greater Than 180 Losartan Potassium 100 mg 03/24/20 09:00 03/26/20 09:13 Losartan 25 Mg Tab PO 100 mg DAILY [facility] Administration Metoprolol Tartrate 75 mg 03/22/20 21:00 03/26/20 09:13 Metoprolol Tartrate 25 Mg Tab PO 75 mg BID [facility] Administration Nifedipine 60 mg 03/25/20 21:00 03/26/20 09:13 Nifedipine Xl 60 Mg Tab PO 60 mg BID [facility] Administration Potassium Chloride 10 meq 03/23/20 12:00 03/25/20 11:48 Potassium Chloride 10 Meq Tab PO 10 meq Q2DAYS [facility] Administration Rosuvastatin Calcium 10 mg 03/23/20 21:00 03/25/20 20:03 Rosuvastatin 10 Mg Tab PO 10 mg HS [facility] Administration Sodium Chloride 10 ml 03/23/20 21:00 03/26/20 09:14 Flush - Normal Saline 10 Ml Syringe IVF 10 ml Q12HR [facility] Administration - Exam Heart: negative: RRR, no murmur, no gallops, no rubs, normal peripheral pulses, irregular, diminshed peripheral pulses, murmur present, II/IV, III/IV Respiratory: rales Gastrointestinal: negative: soft, non-tender, non-distended, normal bowel sounds, no palpable masses, no hepatomegaly, no splenomegaly, no bruit, no guarding, no rigidity, tender to palpation, distended, diminished bowl sounds, voluntary guarding Extremities: 1+ LE edema Hosp A/P (1) Accelerated hypertension Code(s): I10 - ESSENTIAL (PRIMARY) HYPERTENSION Status: Acute (2) Acute on chronic diastolic (congestive) heart failure Code(s): I50.33 - ACUTE ON CHRONIC DIASTOLIC (CONGESTIVE) HEART FAILURE Status: Acute (3) Chronic atrial fibrillation Code(s): I48.20 - CHRONIC ATRIAL FIBRILLATION, UNSPECIFIED Status: Acute (4) Hypertension Code(s): I10 - ESSENTIAL (PRIMARY) HYPERTENSION Status: Acute Qualifiers: Hypertension type: essential hypertension Qualified Code(s): I10 - Essential (primary) hypertension (5) UTI (urinary tract infection) Status: Acute - Plan pt's bp still not controlled. she still feels sob. will continue abx for now.
[2020-03-26] MEDS ORDERED: hydrALAZINE 25 MG TAB PO SCH (14:24)
--- NOTE | 2020-03-26 14:24 | PDOC.HOSPP ---
- Subjective Encounter Date: 03/26/20 Encounter Time: 11:15 Subjective: pt up in bed feels better today - Objective Vital Signs & Weight: Vital Signs (12 hours) Temp Pulse Pulse Pulse Resp BP BP 03/26/20 11:10 97.5 F L 62 17 03/26/20 10:00 82 65 180/77 H 164/70 H 03/26/20 09:14 71 03/26/20 09:13 71 03/26/20 09:09 98.3 F 71 18 03/26/20 06:35 03/26/20 03:00 98.6 F 67 15 BP Pulse Ox Pulse Ox Pulse Ox 03/26/20 11:10 160/69 H 90 L 03/26/20 10:00 95 95 03/26/20 09:14 03/26/20 09:13 03/26/20 09:09 179/76 H 97 03/26/20 06:35 158/74 H 03/26/20 03:00 174/75 H 95 Weight Weight 190 lb 0.968 oz I&O: 03/25/20 03/26/20 03/27/20 06:59 06:59 06:59 Intake Total 1080 1060 Output Total 900 Balance 180 1060 Result Diagrams: 03/23/20 04:42 03/26/20 03:41 Hospitalist ROS - Review of Systems Cardiovascular: denies: chest pain, palpitations, orthopnea, paroxysmal noc. dyspnea, edema, light headedness, other Gastrointestinal: denies: nausea, vomiting, abdominal pain, diarrhea, constipation, melena, hematochezia, other Genitourinary: denies: dysuria, frequency, incontinence, hematuria, retention, other - Medication Medications: Active Medications Generic Name Dose Route Start Last Admin Trade Name Freq PRN Reason Stop Dose Admin Apixaban 5 mg 03/22/20 21:00 03/26/20 09:14 Apixaban 5 Mg Tab PO 5 mg BID [facility] Administration Aspirin 81 mg 03/23/20 09:00 03/26/20 09:13 Aspirin Chewable 81 Mg Tab PO 81 mg DAILY [facility] Administration Hydralazine HCl 25 mg 03/22/20 21:00 03/26/20 09:14 Hydralazine 25 Mg Tab PO 25 mg TID [facility] Administration Ceftriaxone Sodium 1 gm/ 100 mls @ 200 mls/hr 03/24/20 17:00 03/25/20 17:34 Sodium Chloride IVPB 100 mls Q24HR [facility] Administration Labetalol HCl 10 mg 03/25/20 06:24 03/25/20 06:33 Labetalol Hcl 100 Mg/20 Ml Vial SLOW IVP 10 mg Q4H PRN Administration SBP Greater Than 180 Losartan Potassium 100 mg 03/24/20 09:00 03/26/20 09:13 Losartan 25 Mg Tab PO 100 mg DAILY [facility] Administration Metoprolol Tartrate 75 mg 03/22/20 21:00 03/26/20 09:13 Metoprolol Tartrate 25 Mg Tab PO 75 mg BID [facility] Administration Nifedipine 60 mg 03/25/20 21:00 03/26/20 09:13 Nifedipine Xl 60 Mg Tab PO 60 mg BID [facility] Administration Potassium Chloride 10 meq 03/23/20 12:00 03/25/20 11:48 Potassium Chloride 10 Meq Tab PO 10 meq Q2DAYS [facility] Administration Rosuvastatin Calcium 10 mg 03/23/20 21:00 03/25/20 20:03 Rosuvastatin 10 Mg Tab PO 10 mg HS [facility] Administration Sodium Chloride 10 ml 03/23/20 21:00 03/26/20 09:14 Flush - Normal Saline 10 Ml Syringe IVF 10 ml Q12HR [facility] Administration - Exam Heart: negative: RRR, no murmur, no gallops, no rubs, normal peripheral pulses, irregular, diminshed peripheral pulses, murmur present, II/IV, III/IV Respiratory: negative: CTAB, no wheezes, no rales, no ronchi, normal chest expansion, no tachypnea, normal percussion, rales, rhonchi, tachypneic, wheezes Gastrointestinal: negative: soft, non-tender, non-distended, normal bowel sounds, no palpable masses, no hepatomegaly, no splenomegaly, no bruit, no gu arding, no rigidity, tender to palpation, distended, diminished bowl sounds, voluntary guarding Extremities: 1+ LE edema Hosp A/P (1) Accelerated hypertension Code(s): I10 - ESSENTIAL (PRIMARY) HYPERTENSION Status: Acute (2) Acute on chronic diastolic (congestive) heart failure Code(s): I50.33 - ACUTE ON CHRONIC DIASTOLIC (CONGESTIVE) HEART FAILURE Status: Acute (3) Chronic atrial fibrillation Code(s): I48.20 - CHRONIC ATRIAL FIBRILLATION, UNSPECIFIED Status: Acute (4) Hypertension Code(s): I10 - ESSENTIAL (PRIMARY) HYPERTENSION Status: Acute Qualifiers: Hypertension type: essential hypertension Qualified Code(s): I10 - E ssential (primary) hypertension (5) UTI (urinary tract infection) Status: Acute - Plan pt's bp still not controlled. she still feels sob. will continue abx for now. 03/26 pt's cx indicates only few colonies will discontinue abx on discharge. will titrate her bp meds for better control. continue eliquis for afib.
[2020-03-26] MEDS: cefTRIAXone\\ROCEPHIN 1 GM in Sodium Chloride 0.9% 100 ML IVPB SCH (17:13)
[2020-03-26] MEDS: Rosuvastatin 10 MG TAB PO SCH (20:20)
[2020-03-26] MEDS ORDERED: Melatonin 3 MG TAB PO SCH (21:00)
[2020-03-27] MEDS: Labetalol HCl 100 MG/20 ML VIAL SLOW IVP PRN (03:11)
[2020-03-27 04:41] LABS: Anion Gap 14 mmol/L (10-20); BUN (Urea Nitrogen) 29 mg/dL (9.8-20.1); Calc. Creatinine Clearance 62 mL/min (70-130); Calcium 8.3 mg/dL (7.8-10.44); Carbon Dioxide 20 mmol/L (23-31); Chloride 107 mmol/L (98-107); Estimated GFR-MDRD 61; Glucose 99 mg/dL (83-110); Sodium 137 mmol/L (136-145)
[2020-03-27] MEDS: Aspirin Chewable 81 MG TAB PO SCH (08:55)
[2020-03-27] MEDS: Metoprolol Tartrate 25 MG TAB PO SCH (08:55)
[2020-03-27] MEDS: Apixaban 5 MG TAB PO SCH (08:55)
[2020-03-27] MEDS: Losartan 25 MG TAB PO SCH (08:56)
[2020-03-27] MEDS: NIFEdipine XL 60 MG TAB PO SCH (08:59)
[2020-03-27] MEDS ORDERED: Furosemide 40 MG TAB PO SCH (09:00)
[2020-03-27] MEDS ORDERED: hydrALAZINE 25 MG TAB PO SCH (09:00)
[2020-03-27] MEDS: Potassium Chloride 10 MEQ TAB PO SCH (11:41)
[2020-03-27 13:34] VITALS: BP 153/67; TEMP 98.4
--- NOTE | 2020-03-28 11:42 | DIS ---
DATE OF ADMISSION: 03/24/2020 DATE OF DISCHARGE: 03/27/2020 DISCHARGE DIAGNOSES: As of the following; 1. Accelerated hypertension. 2. Acute on chronic diastolic heart failure. 3. Chronic atrial fibrillation. 4. Hypertension. 5. Urinary tract infection. HOSPITAL COURSE: The patient is an 84-year-old female, who initially presented to the hospital with complaints of shortness of breath. At this time, she was found to be hypertensive. Her BNP was elevated at 600. She was seen by Cardiology. She was diuresed. Her blood pressure medications were titrated. The patient at this time continued to improve. She did have 10,000 gram-negative rods. She was put on antibiotics was not continued at home. MEDICATIONS: Her home medications will be; 1. Melatonin 3 mg at bedtime. 2. Lasix 40 mg daily. 3. Eliquis 5 mg twice a day. 4. Metoprolol 75 mg twice a day. 5. Procardia 60 mg b.i.d. 6. Rosuvastatin 10 mg at bedtime. 7. Hydralazine 50 mg t.i.d. PHYSICAL EXAMINATION: VITAL SIGNS: On discharge, temperature 98.4, heart rate 60, respiratory rate 16, O2 saturations 95% on room air, and blood pressure 153/67. GENERAL: She is awake, alert, and oriented x3. Does not appear in distress. CV: S1 and S2 present. No murmurs, rubs, or gallops. Again, she will be discharged home. She will follow up with her primary. Job ID: [id number]
--- NOTE | 2020-03-29 16:29 | EKG ---
Test Reason : Blood Pressure : / mmHG Vent. Rate : 063 BPM Atrial Rate : 051 BPM P-R Int : 000 ms QRS Dur : 168 ms QT Int : 496 ms P-R-T Axes : 000 -78 088 degrees QTc Int : 507 ms Ventricular-paced rhythm Abnormal ECG Confirmed by VANESSA TOLBERT DO ([id number]), dead mail checker EUNICE MOMIN ([id number]) on 03/29/2020 4:27:55 PM Referred By: Confirmed By:VANESSA TOLBERT DO
== END 2020-03-27 13:45 | disposition home health service (06) | DRG 292 ==
LOC: ERS 17:51 → 2SW 21:38 → OBSVTOIN 03-24 09:28 → 2NO 03-24 21:00
PROVIDERS: ADMIT Internal Medicine; ATTEND Internal Medicine
DX: I11.0 Hypertensive heart disease with heart failure (principal); I48.20 Chronic atrial fibrillation, unspecified; N39.0 Urinary tract infection, site not specified; M19.90 Unspecified osteoarthritis, unspecified site; I50.33 Acute on chronic diastolic (congestive) heart failure; E78.00 Pure hypercholesterolemia, unspecified; I49.5 Sick sinus syndrome; Z96.653 Presence of artificial knee joint, bilateral; R79.89 Other specified abnormal findings of blood chemistry; Z95.0 Presence of cardiac pacemaker; I48.0 Paroxysmal atrial fibrillation; Z79.899 Other long term (current) drug therapy; Z79.01 Long term (current) use of anticoagulants; Z88.8 Allergy status to other drugs, medicaments and biological substances; Z20.828 Contact with and (suspected) exposure to other viral communicable diseases
CPT/HCPCS: 36415; 71045; 80048; 80053; 81003; 82550; 82553; 83735; 83880; 84443; 84484; 85025; 87086; 87635; 93005; 93306; 93798; 96374; 96376; G0378; J0696; J1940; J3490; U0003

== ENCOUNTER 2020-06-12 11:22 | Inpatient (IN) | payer MEDICARE ==
[2020-06-12 12:16] LABS: #Eosinphils 0.4 thou/uL (0.0-0.7); #Lymphocytes 1.3 thou/uL (1.20-3.40); #Monocytes 0.8 thou/uL (0.11-0.59); #Neutrophils 5.4 thou/uL (1.40-6.50); %Basophils 0.6 % (0.0-1.0); %Eosinophils 5.3 % (0.0-10.0); %Lymphocytes 15.8 % (21.0-51.0); %Monocytes 10.1 % (0.0-10.0); %Neutrophils 68.2 % (42.0-75.0); Mean Corpuscular HGB CONC 33.7 g/dL (32.0-36.0); Mean Corpuscular Hemoglobin 33.6 pg (27.0-31.0); Mean Corpuscular Volume 99.6 fL (78.0-98.0); Mean Platelet Volume 8.1 fL (7.4-10.4); Platelet Count 223 thou/uL (130-400); RBC Distribution Width 12.8 % (11.5-14.5); Red Blood Cell (RBC) Count 3.29 mill/uL (4.20-5.40)
--- NOTE | 2020-06-12 12:19 | RAD ---
EXAM: Portable chest PROVIDED CLINICAL HISTORY: None COMPARISON: 03/22/2020 FINDINGS: Cardiac and mediastinal silhouette stable in appearance. Vascular calcification and left subclavian c ardiac pacing device are redemonstrated. No focal consolidation, pleural fluid or pneumothorax evident. IMPRESSION: Cardiomegaly and atherosclerosis without evidence for an acute cardiopulmonary process.
[2020-06-12 12:39] LABS: ALT (SGPT) 31 U/L (8-55); AST (SGOT) 32 U/L (5-34); Albumin 3.9 g/dL (3.4-4.8); Alkaline Phosphatase 81 U/L (40-110); Anion Gap 16 mmol/L (10-20); BUN (Urea Nitrogen) 55 mg/dL (9.8-20.1); Bilirubin, Total 0.6 mg/dL (0.2-1.2); Calc. Creatinine Clearance 0 mL/min (70-130); Calcium 8.7 mg/dL (7.8-10.44); Carbon Dioxide 20 mmol/L (23-31); Chloride 104 mmol/L (98-107); Globulin 2.6 g/dL (2.4-3.5); Glucose 109 mg/dL (83-110); Potassium 3.9 mmol/L (3.5-5.1); Protein, Total 6.5 g/dL (6.0-8.3); Sodium 136 mmol/L (136-145)
[2020-06-12 12:58] LABS: Bacteria/HPF 2+ HPF (None Seen); Bilirubin Negative (Negative); Blood, Urine Negative (Negative); Clarity Clear (Clear); Glucose, Urine (Dipstick) Normal (Negative); Ketone, Urine Negative (Negative); Leukocyte Negative Leu/uL (Negative); Nitrite Negative (Negative); Protein, Urine (Dipstick) 30 mg/dL (Neg-Trace); RBC/HPF 0-3 HPF (0-3); Specific Gravity, Urine 1.011 (1.002-1.036); Squamous Epithelial 0-3 HPF (0-3); Urobilinogen Normal mg/dL (Less than 2); WBC/HPF 0-3 HPF (0-3)
[2020-06-12 12:59] LABS: CKMB 1.9 ng/mL (0-6.6)
[2020-06-12] MEDS ORDERED: Acetaminophen 325 MG TAB PO PRN (14:37)
[2020-06-12 16:30] LABS: SARS-CoV-2 NAA Rapid Test Not Detected (NotDetected)
[2020-06-12] MEDS ORDERED: hydrALAZINE 25 MG TAB PO SCH ×2 (17:00→18:15)
[2020-06-12] MEDS ORDERED: Furosemide 20 MG/2 ML VIAL SLOW IVP SCH (18:00)
[2020-06-12 18:11] VITALS: BMI 32.8
--- NOTE | 2020-06-12 19:28 | HP ---
PRIMARY CARE PHYSICIAN: Dr. Sanchez. ENERGY SPECIALIST: Dr. Paez. CHIEF COMPLAINT: Shortness of breath with exertion. HISTORY OF PRESENT ILLNESS: Ms. Redd is an 84-year-old female, who was brought to the emergency room today for complaint of generalized weakness with profound shortness of breath with exertion. She reports that this has been going on for the last 4 to 5 days. She denies any chest pain, denies dyspnea at rest. She reports that she primarily gets short of breath when she tries to go any distance. She reports that she has a caregiver at home who cooks her meals for her and make sure that she takes her medications as prescribed and she has not eaten anything out of normal for her. She normally does not wear any oxygen, but in the emergency room today, she required 2 L of nasal cannula to keep her O2 sats above 92%. Rapid COVID and flu were negative in the emergency room. Chest x-ray showed some cardiomegaly and atherosclerosis with no evidence of any acute process. She was admitted in March for similar symptoms. She had an echocardiogram at that time, which showed an EF of 60% to 65%, moderately dilated left atrium, enlarged right atrium, left ventricular size was normal, impaired relaxation compatible with diastolic dysfunction. She does have a pacemaker. She was gently diuresed on the last admission and was sent home to follow up with her PCP and country director. She does have a history of atrial fibrillation and is on Eliquis for that. She reports that she takes Lasix 40 mg p.o. daily and to take it this morning, but it has not helped her symptoms. She takes hydralazine p.o. t.i.d. and did not get her noon dose. She will be admitted for further management. REVIEW OF SYSTEMS: The patient reports cough. Reports dyspnea on exertion. Reports orthopnea. Denies dyspnea on rest. Denies any chest pain. All other systems are reviewed and are negative unless mentioned above or in the HPI. PAST MEDICAL HISTORY: Pertinent for atrial fibrillation, congestive heart failure, hypertension, chronic low back pain. SURGICAL HISTORY: Total knee replacement and a pacemaker. FAMILY HISTORY: Noncontributory. SOCIAL HISTORY: Smoking status, never smoker. Denies any alcohol or drug use. ALLERGIES: XARELTO. CURRENT MEDICATIONS: 1. Lasix 40 mg p.o. once a day. 2. Hydralazine 75 mg p.o. t.i.d. 3. Crestor 10 mg p.o. once a day. 4. Nifedipine 60 mg p.o. b.i.d. 5. Metoprolol 75 mg p.o. b.i.d. 6. Potassium 10 mEq p.o. every other day. 7. Eliquis 5 mg p.o. b.i.d. 8. Vascepa 1 g b.i.d. 9. Melatonin 3 mg p.o. once a day at bedtime. PHYSICAL EXAMINATION: VITAL SIGNS: Blood pressure 174/72, pulse is 61, respiratory rate is 22, pO2 sats are 98 on 2 L of O2, temp is 98. CONSTITUTIONAL: The patient appears nontoxic. She is alert and oriented to person, place, and time. HEENT: Head is atraumatic and normocephalic. Eyes; pupils are equally round and reactive to light. Eyelids are normal to inspection. ENT; mouth exam is normal. Mucous membranes are moist. NECK: Trachea is midline. RESPIRATORY/CHEST: She has diffuse crackles at the bases. Chest movement is symmetrical. CARDIOVASCULAR: She has irregularly irregular heartbeat. Heart sounds are normal. ABDOMEN: Nontender. Bowel sounds are heard. BACK: Normal range of motion. No tenderness. EXTREMITIES: Upper extremity; radial pulses are normal. Normal range of motion. Lower extremity; pedal pulses are normal. Normal range of motion. She has +1 edema. NEURO: The patient is oriented to person, place, and time. Speech is normal. LABORATORY AND DIAGNOSTIC DATA: Hemoglobin is 11, hematocrit 32.7, and platelet count is 223. BUN is 55; creatinine is 1.19, which is baseline for the patient. Troponin x2, 0.09 to 0.10. The patient typically has elevated troponins when she has been here. It is slightly more than normal and a BNP of 442, which is also close to baseline. PLAN/ASSESSMENT: 1. Dyspnea on exertion, bilateral lower leg edema. We will gently diurese. If not improved overnight, we will ask Dr. Paez to consult. We will trend troponins. Echocardiogram was last done in March of this year. 2. History of hypertension. We will restart her home medications. 3. History of atrial fibrillation. We will continue her Eliquis and her metoprolol. 4. History of hyperlipidemia. We will continue her Crestor. 5. The patient is a full code. 6. Prophylaxis with Eliquis. We have added Pepcid for PUD prevention. 7. Clinical course dependent on clinical findings. Job ID: [id number]
[2020-06-12 20:10] LABS: Troponin I 0.113 ng/mL (< 0.028)
[2020-06-12] MEDS: Apixaban 5 MG TAB PO SCH (20:57)
[2020-06-12] MEDS: Rosuvastatin 10 MG TAB PO SCH (20:57)
[2020-06-12] MEDS: Famotidine 20 MG TAB PO SCH (20:57)
[2020-06-12] MEDS: NIFEdipine XL 60 MG TAB PO SCH (20:58)
[2020-06-12] MEDS: Metoprolol Tartrate 50 MG TAB PO SCH (21:00)
[2020-06-12] MEDS: Melatonin 3 MG TAB PO SCH (21:21)
[2020-06-13 05:15] LABS: #Eosinphils 0.8 thou/uL (0.0-0.7); #Lymphocytes 1.6 thou/uL (1.20-3.40); #Monocytes 0.9 thou/uL (0.11-0.59); %Basophils 0.6 % (0.0-1.0); %Eosinophils 9.1 % (0.0-10.0); %Monocytes 11.2 % (0.0-10.0); %Neutrophils 60.1 % (42.0-75.0); Hemoglobin 10.5 g/dL (12.0-16.0); Mean Corpuscular Hemoglobin 32.7 pg (27.0-31.0); Platelet Count 247 thou/uL (130-400); RBC Distribution Width 12.7 % (11.5-14.5); Red Blood Cell (RBC) Count 3.21 mill/uL (4.20-5.40); White Blood Cell (WBC) Count 8.3 thou/uL (4.8-10.8)
[2020-06-13 05:36] LABS: ALT (SGPT) 27 U/L (8-55); AST (SGOT) 25 U/L (5-34); Albumin 3.6 g/dL (3.4-4.8); Alkaline Phosphatase 74 U/L (40-110); Anion Gap 15 mmol/L (10-20); BUN (Urea Nitrogen) 48 mg/dL (9.8-20.1); Bilirubin, Total 0.6 mg/dL (0.2-1.2); Calc. Creatinine Clearance 48 mL/min (70-130); Calcium 8.5 mg/dL (7.8-10.44); Carbon Dioxide 21 mmol/L (23-31); Chloride 107 mmol/L (98-107); Globulin 2.3 g/dL (2.4-3.5); Glucose 100 mg/dL (83-110); Potassium 3.7 mmol/L (3.5-5.1); Protein, Total 5.9 g/dL (6.0-8.3); Sodium 139 mmol/L (136-145)
[2020-06-13] MEDS: hydrALAZINE 25 MG TAB PO SCH ×3 (06:31→17:03)
[2020-06-13] MEDS: Apixaban 5 MG TAB PO SCH ×2 (08:47→21:36)
[2020-06-13] MEDS: Furosemide 40 MG/4 ML VIAL SLOW IVP SCH (08:47)
[2020-06-13] MEDS: NIFEdipine XL 60 MG TAB PO SCH ×2 (08:47→21:32)
[2020-06-13] MEDS: Famotidine 20 MG TAB PO SCH ×2 (08:47→21:35)
[2020-06-13] MEDS: Metoprolol Tartrate 50 MG TAB PO SCH ×2 (08:47→21:33)
[2020-06-13] MEDS ORDERED: hydrALAZINE 25 MG TAB PO SCH (09:00)
--- NOTE | 2020-06-13 09:57 | CON ---
DATE OF CONSULTATION: HISTORY OF PRESENT ILLNESS: The patient is a very pleasant 84-year-old woman, who presents with increasing dyspnea. The patient has a history of paroxysmal atrial fibrillation. The patient is on chronic anticoagulation therapy. The patient presents with increasing shortness of breath. She was hospitalized earlier this year with altered mental status. The patient denies having any chest discomfort. She previously underwent a cardiac evaluation including a stress test and there was evidence of ischemia. The patient preferred medical therapy. The patient was in her usual state of health when yesterday became markedly dyspneic. The patient denied having any fevers or chills. The patient states she has been compliant with her medication. She denies any increase in her sodium intake. PAST MEDICAL HISTORY: 1. Atrial fibrillation. 2. Congestive heart failure. 3. Hypertension. 4. Dyslipidemia. PAST SURGICAL HISTORY: Knee surgery. ALLERGIES: XARELTO. MEDICATIONS: 1. Metoprolol 75 b.i.d. 2. Cozaar 100 daily. 3. Vascepa two tablets 1 g p.o. b.i.d. 4. Crestor 10 at bedtime. 5. Potassium 10 mEq p.o. every other day. 6. Nifedipine 60 b.i.d. 7. Eliquis 5 b.i.d. 8. Hydralazine 75 t.i.d. 9. Lasix 80 daily. REVIEW OF SYSTEMS: Ten-point system otherwise unremarkable. PHYSICAL EXAMINATION: GENERAL: This is an obese woman, in no acute distress. VITAL SIGNS: Blood pressure 143/60. NECK: No jugular venous distention. LUNGS: Clear to auscultation. HEART: Regular rate and rhythm. Normal S1, S2 with a 1/6 systolic murmur. EXTREMITIES: Moderate bilateral edema. VASCULAR: Radial pulses are 2+. LABORATORY RESULTS: Sodium 139, potassium 3.7, chloride 107, bicarbonate 21, BUN 48, creatinine 0.112. White blood cell count 8.3, hemoglobin 10.5, hematocrit 31.8, platelets are 247. BNP was 442. EKG electronic ventricular pacemaker. IMPRESSION: 1. Congestive heart failure secondary to diastolic dysfunction. 2. Atrial fibrillation. 3. Hypertension. 4. Severe tricuspid regurgitation. 5. History of pulmonary hypertension. 6. History of pacemaker placement. This patient presents with increasing dyspnea. She does have diastolic dysfunction and pulmonary hypertension. From a cardiac standpoint, we will ask the EP to evaluate whether she might benefit from biventricular pacing. We will follow this patient with you through her hospitalization. Job ID: [id number] [id number]
[2020-06-13] MEDS: Senokot S 8.6-50 MG TAB PO PRN ×2 (10:47→21:35)
--- NOTE | 2020-06-13 10:55 | PDOC.HOSPP ---
- Subjective Encounter Date: 06/13/20 Encounter Time: 08:30 Subjective: Patient examined this morning. She was sitting up eating breakfast. Denies new complaints. Reports her dyspnea has improved today. - Objective Vital Signs & Weight: Vital Signs (12 hours) Temp Pulse Resp BP Pulse Ox 06/13/20 08:47 60 06/13/20 07:47 97.5 F L 60 16 138/63 91 L 06/13/20 03:52 97.4 F L 95 18 102/67 95 06/13/20 01:00 97.9 F 70 18 109/57 L 97 06/13/20 00:00 97.9 F 60 16 127/86 94 L Weight Weight 83.915 kg I&O: 06/12/20 06/13/20 06/14/20 06:59 06:59 06:59 Intake Total 60 304 Output Total 2 Balance 58 304 Result Diagrams: 06/13/20 04:53 06/13/20 04:53 Hospitalist ROS - Review of Systems Constitutional: denies: fever, chills, sweats, weakness, malaise, other Eyes: denies: pain, vision change, conjunctivae inflammation, eyelid inflammation, redness, other ENT: denies: ear pain, ear discharge, nose pain, nose discharge, nose congestion, mouth pain, mouth swelling, throat pain, throat swelling, other Respiratory: reports: cough, shortness of breath (improving) Cardiovascular: denies: chest pain Gastrointestinal: denies: nausea, vomiting, abdominal pain, diarrhea, constipation, melena, hematochezia, other Genitourinary: denies: dysuria, frequency, incontinence, hematuria, retention, other Musculoskeletal: denies: neck pain, shoulder pain, arm pain, back pain, hand pain, leg pain, foot pain, other Skin: denies: rash, lesions, jose, bruising, other Neurological: denies: weakness, numbness, incoordination, change in speech, confusion, seizures, other - Medication Medications: Active Medications Generic Name Dose Route Start Last Admin Trade Name Freq PRN Reason Stop Dose Admin Apixaban 5 mg 06/12/20 21:00 06/13/20 08:47 Apixaban 5 Mg Tab PO 5 mg BID RANDALL Administration Famotidine 20 mg 06/12/20 21:00 12/22/20 08:47 Famotidine 20 Mg Tab PO 20 mg BID RANDALL Administration Furosemide 40 mg 06/13/20 09:00 06/13/20 08:47 Furosemide 40 Mg/4 Ml Vial SLOW IVP 40 mg DAILY RANDALL Administration Hydralazine HCl 75 mg 06/13/20 06:00 06/13/20 06:31 Hydralazine 25 Mg Tab PO Not Given 0600,1200,1800 RANDALL Melatonin 3 mg 06/12/20 21:00 06/12/20 21:21 Melatonin 3 Mg Tab PO 3 mg HS RANDALL Administration Metoprolol Tartrate 75 mg 06/12/20 21:00 06/13/20 08:47 Metoprolol Tartrate 50 Mg Tab PO 75 mg BID RANDALL Administration Nifedipine 60 mg 06/12/20 21:00 06/13/20 08:47 Nifedipine Xl 60 Mg Tab PO 60 mg BID RANDALL Administration Rosuvastatin Calcium 10 mg 06/12/20 21:00 06/12/20 20:57 Rosuvastatin 10 Mg Tab PO 10 mg HS RANDALL Administration Senna/Docusate Sodium 2 tab 06/12/20 14:37 06/13/20 10:47 Senokot S 8.6-50 Mg Tab PO 2 tab BIDPRN PRN Administration Constipation - Exam Eye: PERRL, anicteric sclera ENT: normocephalic atraumatic, moist mucosa Neck: supple, no lymphadenopathy Heart: RRR, normal peripheral pulses Respiratory: CTAB, normal chest expansion Gastrointestinal: soft, normal bowel sounds Extremities: no cyanosis, 1+ LE edema Skin: normal turgor Neurological: cranial nerve grossly intact Musculoskeletal: normal tone Psychiatric: A&O x 3 Hosp A/P - Plan #CHF exacerbation Pacemaker was interogated and she had over 200 episodes of atrial arrhythmias, last one on 06/11. Cardiology has been consulted Continue lasix IVP #Chronic kidney disease, stable. Will continue to watch closely. #HTN- continue home medications #HLD - continue home medications #DVT prevention with Eliqusherrill; PUD prevention with pepcibobby Hudson is attending today
--- NOTE | 2020-06-13 13:41 | CON ---
DATE OF CONSULTATION: 06/13/2020 REASON FOR CONSULTATION: Consideration of upgrade to biventricular pacemaker. CONSULTED PHYSICIAN: Cory Boone MD. Consultation report performed in conjunction with Dr. Cory Boone. HISTORY OF PRESENT ILLNESS: Ms. Redd is an 84-year-old woman who presented to the hospital with increasing dyspnea and was found with congestive heart failure from diastolic dysfunction. She has a history of chronic diastolic heart failure with occasional exacerbations over the past year. Her LVEF is 60% to 65% by echocardiogram in March 2020. She denies any history of coronary artery disease or any recent stress test. She has been experiencing increasing shortness of breath, which has since resolved. She is currently sitting upright in the chair, converses easily with no dyspnea. She does not have any ongoing complaints at the moment. Her pacemaker was interrogated and she is seen to have increased burden in ventricular pacing. EP consultation is requested for consideration of upgrade to a biventricular device. REVIEW OF SYSTEMS: 12-point review of systems was conducted, is negative except that is listed above in HPI. PAST MEDICAL HISTORY: 1. Paroxysmal atrial fibrillation. 2. Acute on chronic diastolic heart failure. a. March 2020 echocardiogram LVEF 60% to 65%. 3. Hypertension. 4. Dyslipidemia. 5. Oral anticoagulation on Eliquis. 6. Intermittent third-degree AV block. 7. Dual-chamber pacemaker implant, 06/24/2019, [employer] Rachna XT DR DUPREE. SURGICAL HISTORY: Knee surgery. ALLERGIES: XARELTO, CAUSES HIVES HOME MEDICATIONS: 1. Senna at bedtime. 2. Metoprolol tartrate 75 mg p.o. b.i.d. 3. Cozaar 100 mg p.o. daily. 4. Vascepa 1 g p.o. b.i.d. 5. Crestor 10 mg at bedtime. 6. Klor-Con 10 mEq every 2 days. 7. Procardia 60 mg b.i.d. 8. Eliquis 5 mg b.i.d. 9. Hydralazine 75 mg b.i.d. 10. Melatonin 3 mg at bedtime. 11. Furosemide 80 mg daily. SOCIAL HISTORY: She lives at home alone but has help during the day. She denies any alcohol, tobacco, or illicit drug use. FAMILY HISTORY: Noncontributory. OBJECTIVE: VITAL SIGNS: Temperature 98.2, pulse 62, blood pressure 112/54, respirations 16, oxygen 91% on room air. GENERAL: The patient is alert, oriented. Speech is clear. Affect is appropriate. She is in no apparent distress. Sitting upright in a chair at the time of exam. HEENT: She is normocephalic, atraumatic. Sclerae anicteric. EOMs are intact. Oral mucosa is moist and pink with adequate dentition. NECK: Supple without jugular venous distention. There is no lymphadenopathy. Her trachea is midline. LUNGS: Clear to auscultation bilaterally without wheezes, crackles, or rhonchi. HEART: Rate is regular with a controlled rate. PMI is nondisplaced. There is a left precordial pacemaker and site is without reaction. ABDOMEN: Soft, nontender without palpable masses. EXTREMITIES: Warm and dry to touch, well perfused, without clubbing, cyanosis, or edema. Gait is stable throughout the room without assistive device. Telemetry and EKG show atrial fibrillation with ventricular pacing. No clear atrial activity is seen. DEVICE CHECK: This is a [employer]tronic Rachna XT DR MRI dual-chamber pacemaker implant, 06/24/2019. Battery longevity 11.7 years. Lead parameters are stable with adequate sensing. Impedance, threshold, and sensitivity are within acceptable ranges. Mode is currently MVP in the lower rate limit of 60. No ventricular arrhythmias detected. Atrial fibrillation burden is approximately 49% since early April. AF burden appears paroxysmal until approximately March when episodes become more frequent and with increasing duration until today. It appears that she has likely persisted in atrial fibrillation starting approximately 2 to 3 days ago and her ventricular rates with her atrial fibrillation are slow causing an increase in ventricular pacing currently measuring 71% at time of pacemaker interrogation. The device is functioning normally. Echocardiogram, 03/23/2020, LVEF 60% to 65%. Moderately dilated left atrium measuring 5.13 cm. Moderate concentric LVH. Impaired relaxation suggesting diastolic dysfunction. Moderate mitral regurgitation and moderate to severe tricuspid regurgitation. LABORATORY DATA: Hemoglobin 10.5, platelet count 247. Chemistry: Potassium 3.7, creatinine 1.1. Troponins are negative. BNP 442. Liver enzymes within normal ranges. IMPRESSION: 1. Acute on chronic diastolic congestive heart failure 2. Paroxysmal atrial fibrillation. 3. History of third-degree AV block, prompting dual-chamber pacemaker implant. 4. High-grade RV pacing in the setting of atrial fibrillation with slow ventricular rates. 5. Ventricular dyssynchrony secondary to high-grade RV pacing with diastolic heart failure exacerbation. PLAN AND RECOMMENDATIONS: Ms. Redd is an 84-year-old woman who is seen to have increased RV pacing and progressive congestive heart failure symptoms of dyspnea and some fluid retention. At this point, her RV pacing is 100%. I cannot see any intrinsic QRS beats on her telemetry or EKG. It is unclear how slow her ventricular rates would be in atrial fibrillation without pacemaker support. This was discussed with Dr. Boone. He feels she would likely benefit from upgrade to a biventricular pacemaker, which can be done as an outpatient, after her heart failure is optimized. We could also consider antiarrhythmic therapy for suppression of her atrial fibrillation as this is contributing to her RV pacing. She does have a preserved LVEF. Cardiology reports abnormal stress test but she declined LHC so her ischemic status is unclear at this point. Multaq (if HF stabilizes) or amiodarone are options. Avoid class 1c with questionable ischemic status. She should continue oral anticoagulation. If she persists in atrial fibrillation, consideration for cardioversion would not be unreasonable given her adequate anticoagulation and a fairly recent onset of this persisting atrial arrhythmias. Her lower rate limit is currently set at 60 beats per minute on her pacemaker, which could be reduced slightly in an attempt to minimize RV pacing. We will make arrangements in the near future as an outpatient for upgrade to Bi V device or to [employer]CH pacemaker who sees me in the setting of ventricular dyssynchrony causing congestive heart failure. Possibly intiate multaq after that if CHF has stabilized. Plan of care was developed by Dr. Cory Boone, in conjunction with interview and physical exam performed by myself. Job ID: [id number] [facility]
[2020-06-13] MEDS: Melatonin 3 MG TAB PO SCH (21:35)
[2020-06-13] MEDS: Rosuvastatin 10 MG TAB PO SCH (21:35)
[2020-06-14] MEDS: hydrALAZINE 25 MG TAB PO SCH ×2 (04:53→11:42)
[2020-06-14] MEDS: Apixaban 5 MG TAB PO SCH (08:24)
[2020-06-14] MEDS: Famotidine 20 MG TAB PO SCH (08:24)
[2020-06-14] MEDS: Furosemide 40 MG/4 ML VIAL SLOW IVP SCH (08:24)
[2020-06-14] MEDS: NIFEdipine XL 60 MG TAB PO SCH (08:24)
[2020-06-14] MEDS: Metoprolol Tartrate 50 MG TAB PO SCH (08:24)
[2020-06-14] MEDS: Senokot S 8.6-50 MG TAB PO PRN (08:25)
[2020-06-14] MEDS ORDERED: Losartan 25 MG TAB PO SCH (09:00)
[2020-06-14 11:59] VITALS: BP 118/56; TEMP 97.4
--- NOTE | 2020-06-14 12:00 | DIS ---
DATE OF ADMISSION: 06/13/2020 DATE OF DISCHARGE: 06/14/2020 PRIMARY CARE PHYSICIAN: Dr. Oh. CONSULTANTS: Dr. Paez Cardiology. Emerald Blair for EP Cardiology. PROCEDURES: Patient had chest x-ray which showed some cardiomegaly with atherosclerosis without evidence of any acute cardiopulmonary process. SHORT STAY SUMMARY: Ms. Redd is a very pleasant 84-year-old female who was brought to the emergency room after a complaint of generalized weakness and profound shortness of breath with exertion. She noted that this has been going on for 4 to 5 days prior to seeking medical attention. She does not wear oxygen at home, but in the emergency room she required 2 L nasal cannula to keep her O2 saturations above 92%. She does have a history of congestive heart failure, atrial fibrillation, and is on chronic anticoagulation therapy. She was evaluated by Dr. Paez, her plastic tile setter while in the hospital and he noted that she has congestive heart failure secondary to diastolic dysfunction, atrial fibrillation, hypertension, severe tricuspid regurgitation, history of pulmonary hypertension, and she does currently have a pacemaker that was placed for the atrial fibrillation. Dr. Paez asked the EP plastic tile setter to evaluate her to see if she would be a good candidate for a biventricular pacemaker. Emerald Blair with Dr. Boone evaluated the patient and agreed that she would be a good candidate for the biventricular pacemaker and this could be arranged as an outpatient. They recommended a biventricular or a [employer]OR pacemaker to be done when it was mutually available for both the EP doctor and the patient. They also recommended potentially adding Multaq once her CHF has been stabilized, which will most likely happen after her pacemaker has been switched out. Dr. Paez saw her today prior to discharge and she was seen by the Hospitalist as well. She denied any complaints. Reports that she slept pretty well. Reports that her shortness of breath is much improved and that she was wanting to go home. Cardiology has signed off on this and we are currently working with the EP plastic tile setter to get her new pacemaker scheduled, but they did not think that patient should wait in the hospital for that, they will call the patient in or the family to let them know when that has been arranged. ALLERGIES: XARELTO. HOME MEDICATIONS: Home medications to be continued on discharge; 1. Hydralazine 75 mg p.o. t.i.d. 2. Losartan 100 mg p.o. daily. 3. Crestor 10 mg p.o. at bedtime. 4. Eliquis 5 mg p.o. b.i.d. 5. Potassium chloride 10 mEq every 2 days. 6. Lasix 80 mg p.o. daily. 7. Melatonin 3 mg p.o. at bedtime. 8. Lopressor 75 mg p.o. b.i.d. 9. Procardia XL 60 mg p.o. b.i.d. 10. Vascepa 1 g p.o. b.i.d. 11. laxative p.o. at bedtime. DISPOSITION: Home. DISCHARGE STATUS: Stable. Vital signs have remained stable as well as her laboratory values. DISCHARGE INSTRUCTIONS: The patient should follow up with her primary care within the next 7 to 10 days. Follow up with Dr. Paez within the next 2 weeks. Follow up with EP plastic tile setter Dr. oBone and when scheduled. If the patient has any new or worrisome symptoms please go to the nearest emergency room for evaluation. Case discussed with Dr. Prado who agrees with plan. Job ID: [id number]
== END 2020-06-14 14:24 | disposition home health service (06) | DRG 291 ==
LOC: ERS 11:22 → 2SE 14:25 → OBSVTOIN 06-13 14:55
PROVIDERS: ADMIT Internal Medicine; ATTEND Internal Medicine
DX: I13.0 Hypertensive heart and chronic kidney disease with heart failure and stage 1 through stage 4 chronic kidney disease, or unspecified chronic kidney disease (principal); I50.33 Acute on chronic diastolic (congestive) heart failure; I44.2 Atrioventricular block, complete; Z96.653 Presence of artificial knee joint, bilateral; M19.90 Unspecified osteoarthritis, unspecified site; E78.00 Pure hypercholesterolemia, unspecified; G89.29 Other chronic pain; M54.5 Low back pain; I27.29 Other secondary pulmonary hypertension; N18.9 Chronic kidney disease, unspecified; I48.0 Paroxysmal atrial fibrillation; Z20.828 Contact with and (suspected) exposure to other viral communicable diseases; Z79.899 Other long term (current) drug therapy; Z79.01 Long term (current) use of anticoagulants; Z88.8 Allergy status to other drugs, medicaments and biological substances; Z95.0 Presence of cardiac pacemaker
CPT/HCPCS: 0240U; 36415; 36416; 71045; 80053; 81003; 81015; 82553; 83880; 84484; 85025; 87077; 87086; 87186; 93005; 96374; 96376; G0378; J1940

== ENCOUNTER 2020-06-19 14:02 | Emergency (ER) | payer MEDICARE ==
[2020-06-19] MEDS ORDERED: Furosemide 40 MG/4 ML VIAL ONE (15:39)
[2020-06-19 15:41] LABS: #Eosinphils 0.7 thou/uL (0.0-0.7); #Lymphocytes 1.4 thou/uL (1.20-3.40); %Basophils 0.5 % (0.0-1.0); %Eosinophils 7.7 % (0.0-10.0); %Lymphocytes 15.6 % (21.0-51.0); %Monocytes 10.8 % (0.0-10.0); %Neutrophils 65.5 % (42.0-75.0); Hemoglobin 10.9 g/dL (12.0-16.0); Mean Corpuscular HGB CONC 32.5 g/dL (32.0-36.0); Mean Corpuscular Hemoglobin 32.4 pg (27.0-31.0); Mean Corpuscular Volume 99.8 fL (78.0-98.0); Mean Platelet Volume 7.8 fL (7.4-10.4); Platelet Count 264 thou/uL (130-400); Red Blood Cell (RBC) Count 3.36 mill/uL (4.20-5.40); White Blood Cell (WBC) Count 9.2 thou/uL (4.8-10.8)
[2020-06-19 15:48] LABS: Bilirubin Negative (Negative); Blood, Urine Negative (Negative); Clarity Clear (Clear); Glucose, Urine (Dipstick) Normal (Negative); Ketone, Urine Negative (Negative); Leukocyte Negative Leu/uL (Negative); Nitrite Negative (Negative); Protein, Urine (Dipstick) Negative (Neg-Trace); Specific Gravity, Urine 1.006 (1.002-1.036); Urobilinogen Normal mg/dL (Less than 2)
--- NOTE | 2020-06-19 16:00 | RAD ---
XR Chest 1 View Portable History: Dyspnea Comparison: Radiograph June 12, 2020 Findings: Small pleural effusions. Mild pulmonary venous congestion and early pulmonary edema. No pne umothorax. The right ventricular lead is out of the field of view. Impression: New pulmonary venous congestion and early edema.
[2020-06-19 16:05] LABS: ALT (SGPT) 39 U/L (8-55); AST (SGOT) 37 U/L (5-34); Alkaline Phosphatase 92 U/L (40-110); Anion Gap 19 mmol/L (10-20); BUN (Urea Nitrogen) 55 mg/dL (9.8-20.1); Bilirubin, Total 0.7 mg/dL (0.2-1.2); Calc. Creatinine Clearance 0 mL/min (70-130); Calcium 8.6 mg/dL (7.8-10.44); Carbon Dioxide 17 mmol/L (23-31); Chloride 105 mmol/L (98-107); Globulin 2.6 g/dL (2.4-3.5); Glucose 118 mg/dL (83-110); Potassium 3.8 mmol/L (3.5-5.1); Protein, Total 6.6 g/dL (6.0-8.3); Sodium 137 mmol/L (136-145)
[2020-06-19 16:27] LABS: CKMB 2.5 ng/mL (0-6.6)
== END 2020-06-19 20:22 | disposition home or self-care (01) ==
LOC: ERS 14:02
DX: R06.00 Dyspnea, unspecified (principal); I11.0 Hypertensive heart disease with heart failure; I50.9 Heart failure, unspecified; I48.91 Unspecified atrial fibrillation; E78.00 Pure hypercholesterolemia, unspecified; Z79.899 Other long term (current) drug therapy
CPT/HCPCS: 36415; 71045; 81003; 82553; 83880; 84484; 93005; 96374; J1940